=== PATIENT | female | born 1945 | race Caucasian/White ===

== ENCOUNTER 2024-07-03 19:57 | Inpatient (IN) | payer MEDICARE, MEDICAID, SELFPAY ==
--- NOTE | ~2024-07-03 | XR_ITS ---
EXAMINATION: XR CHEST CLINICAL INFORMATION: F u Multifocal pneumonia COMPARISON: July 03, 2024 TECHNIQUE: Frontal view of the chest was obtained. FINDINGS: Mild prominence of the interstitial markings. Improved aeration. No pleural effusion. No pneumothorax. Cardiac mediastinal silhouette size is normal. There is a moderate to large volume hiatal hernia overlapping the heart silhouette. Calcified plaque thoracic aorta. Multilevel thoracic spondylosis. S-shaped curvature of the thoracic spine. XR/XR chest 1V IMPRESSION: Improved aeration/decreased interstitial lung edema. Electronically signed by: Yaniv Bearden MD 07/06/2024 08:51 AM [facility]INE
--- NOTE | ~2024-07-03 | CT_ITS ---
CLINICAL HISTORY: pna, flu A+ CT chest without contrast Comparison: Chest x-ray from 07/03/2024 Findings: Multifocal airspace disease concerning for pneumonitis and/or multifocal pneumonia including ground-glass in the left upper lobe. Small-minimal pleural effusions. No pneumothorax. Mild cardiomegaly with multichamber enlargement of the heart. Small mediastinal lymph nodes are nonspecific and may be reactive. Secretions noted in the trachea. Vascular calcifications include imaged aorta and its branches and coronary arteries. [id number] hiatal hernia with mild rotation of the imaged stomach in this noncontrast study. Multiple cystic lesions of the liver not characterize without intravenous contrast. Differential considerations include cysts and hemangiomas. Liver metastasis is not excluded. Imaged cystic lesion of the right kidney measures 6 cm is partially imaged in the [id number]. Degenerative changes include imaged shoulders and imaged spine. IMPRESSION: 1. Multifocal airspace disease concerning for multifocal pneumonia. Recommend attention on follow-up to ensure resolution. 2. [id number] hiatal hernia. 3. Nonspecific cystic lesions of the imaged liver. Please consider nonemergent dedicated liver imaging for additional characterization. This document has been electronically signed by: Kemal Trejo MD on 07/04/2024 02:54:59
--- NOTE | ~2024-07-03 | XR_ITS ---
CLINICAL HISTORY: SOB 1 view chest x-ray Comparison: None Findings: Interstitial prominence and patchy opacities in both lungs. Heart size is normal. No acute fracture. IMPRESSION: Interstitial prominence and patchy opacities in both lungs which could represent pulmonary vascular congestion or atypical/viral pneumonia. This document has been electronically signed by: Saad Murphy MD on 07/03/2024 21:38:03
[2024-07-03 19:58] VITALS: BP 118/61; PULSE 69; RESP 28; TEMP 37; O2SAT 72; BMI 28.1
--- NOTE | 2024-07-03 19:59 | ED.SOB ---
HPI - SOB/Dyspnea General Chief Complaint: Dyspnea Stated Complaint: SOB Time Seen by Provider: 07/03/24 20:03 Source: patient and family Mode of arrival: ambulatory Limitations: no limitations History of Present Illness ED Provider: Dr. Tegan Tovar HPI Narrative: Patient comes to the emergency room complaining to 4-5 days of difficulty breathing, cough, wheezing. To patient's knowledge, she has no history of asthma or emphysema. 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 Patient's family at bedside, patient had a low-grade fever couple of days ago. They noted the patient had difficulty breathing. Someone in the family has history of asthma and gave her a nebulization treatment to help the patient breathe. Then, they decided to check her O2 monitor at home and they noted that the patient's oxygen saturation was in the 70s, they brought the patient to emergency room. To patient's knowledge, she does not have any sick contacts. When patient arrived to triage, it was noted that patient's oxygen saturation was 72% on room air with good waveform. Related Data Allergies Allergy/AdvReac Type Severity Reaction Status Date / Time No Known Allergies Allergy Verified 07/03/24 20:00 Review of Systems Review of Systems: Constitutional : No Weight loss, complaining of low-grade Fever, No Chills, No Night Sweats, No Fatigue, No Malaise ENT/Mouth : No Hearing loss, No Ear Pain, No Nasal Congestion, No Sinus Pain, No Hoarseness, No sore throat, No Rhinorrhea, No Swallowing Difficulty Eyes: No Eye Pain, No Swelling, No Redness, No Foreign Body, No Discharge, No Vision Changes Cardiovascular : No Chest Pain, No SOB, No Dyspnea on Exertion, No Orthopnea, No Edema, No Palpitations Respiratory : Complaining of mild cough, new onset wheezing, shortness of breath for 4 days Gastrointestinal : No Nausea, No Vomiting, No Diarrhea, No Constipation, No abdominal Pain, No Hematochezia, No Melena Genitourinary : no irregular bleeding, No Dysuria, No Urinary Frequency, No Hematuria, No Urinary Incontinence, No Urgency, No Flank Pain, No Urinary Flow Changes, No Hesitancy Musculoskeletal : No joint pain, No Myalgias, No Joint Swelling Skin : No Skin Lesions, No rash Neuro : No Weakness, No Numbness, No Paresthesias, No Loss of Consciousness, No Dizziness, No Headache Psych : No Anxiety/Panic, No Depression, No SI/HI/AH/VH, No Social Issues, Heme/Lymph: No Bruising, No Bleeding,No Lymphadenopathy Endocrine : No Polyuria, No Polydipsia, No Temperature Intolerance [facility] Past Medical History Medical History Hypertension Social History Social History Smoked in Last 30 Days: No Use of substances other than those prescribed or required for medical reasons: No Advance Directives: Yes Advance Directives on File: Yes Advance Directives Date on File: 04/23/24 Physical Exam Vital Signs: Vital Signs: Last Vital Signs Temp 98.6 F 07/03/24 19:58 Pulse 64 07/03/24 20:36 Resp 22 H 07/03/24 20:36 BP 118/61 07/03/24 19:58 Pulse Ox 72 L 07/03/24 19:58 O2 Del Method Room Air 07/03/24 19:58 BMI result Body Mass Index 28.1 Const: Other: Appearance: Alert. Oriented X3. Looks uncomfortable Eyes: Pupils equal, round and reactive to light. ENT: Pharynx normal. Neck: Normal inspection. Neck supple. No lymph nodes noted. No crepitus CVS: Normal heart rate and rhythm. Pulses normal. Normal S1 and S2 Respiratory: Patient's oxygen saturation 95% on 5 L. Previously 72% on room air. Patient wheezing bilaterally Abdomen: Soft and nontender. No rigidity. No distention. Skin: Skin warm and clammy. Normal skin color. Normal skin turgor. Extremities: No lower extremity edema. No Lacerations. No Rash Neuro: Oriented X 3. No motor deficit. No sensory deficit. Moving all extremities. No slurred speech. CN 2 through 12 grossly intact Psych: calm, cooperative, normal affect Course Course Course Narrative: This is an RME: Additional HPI, ROS, PE not included below will be deferred to primary provider. RME assessment and note performed by: Krissy Herron PA-C This is a 79-year-old female, with a history of hypertension, circulation problems arthritis, who presents emergency department with complaints of shortness for breath, cough, fevers and wheezing since . Patient with an oxygen saturation 71% on room air. Plan: Labs, chest x-ray, EKG, ED bronch protocol, blood cultures, VBG, patient immediately brought back to the emergency department. She was placed on 6 L nasal cannula, oxygen saturation 96% Medications Administered Discontinued Medications Generic Name Dose Route Start Last Admin Trade Name Cristine PRN Reason Stop Dose Admin Albuterol Sulfate 2.5 mg/ 0 mg 07/03/24 20:30 07/03/24 20:38 Albuterol/Ipratropium 3 ml INHALE 07/03/24 20:31 5 dose ONCE ONE Administration Magnesium Sulfate 2 gm in 50 mls @ 25 mls/hr 07/03/24 20:28 07/03/24 20:52 Magnesium Sulfate/H2o IV 07/03/24 22:27 25 mls/hr ONCE ONE Administration Methylprednisolone Sodium Succinate 125 mg 07/03/24 20:28 07/03/24 20:52 Methylprednisolone Sod Succ 125 Mg/2 Ml Vial IVPUSH 07/03/24 20:29 125 mg ONCE ONE Administration Medical Decision Making Medical Decision Making [facility] Narrative: Patient of EKG: Sinus rhythm, first-degree AV block, right bundle-branch block, heart rate 64, QTC 468 My interpretation of labs: Patient's white blood cell count 4.1, lymphocytes 44.2 likely viral illness, it does not show any significant acute abnormality. Lactic 1.0, patient's magnesium is 3.2, patient was given magnesium on arrival for shortness of breath/wheezing. BNP slightly bumped at 252 Chest x-ray shows patchy opacities in both lungs, congestion versus viral pneumonia. Neurology positive for influenza A Patient does need oxygen. Patient needs admission. I discussed the patient with Dr. Jerome, patient being admitted Differential Diagnosis Differential Diagnoses: The differential diagnosis associated with the presentation includes (Influenza, COVID, pneumonia) Admission/Observation Consideration of admission/observation: Escalation of care including admission/observation considered Consult Healthcare Provider Management of the patient was discussed with: Hospitalist Lab Data [facility] Lab Attestation statement: I reviewed the patient's lab results. 07/03/24 20:07/03/24 21:24 Labs: Lab Results 07/03/24 07/03/24 07/03/24 Range/Units 20:25 20:33 21:24 WBC 4.1 L (4.8-10.8) X10*3/uL RBC 4.27 (4.20-5.50) X10*6/uL Hgb 13.0 (12.0-16.0) g/dl Hct 39.5 (37.0-47.0) % MCV 92.5 (80.0-98.0) fL MCH 30.4 (27.0-33.0) pg MCHC 32.9 (31.0-35.0) g/dl RDW 14.1 (11.0-16.0) % Plt Count 191 (160-400) X10*3/uL MPV 9.3 L (9.4-12.3) fL Immature Gran % (Auto) 0.7 H (0.0-0.4) % Neut % (Auto) 45.2 (45-73) % Lymph % (Auto) 44.2 H (20-40) % [place] % (Auto) 9.5 (2-11) % Eos % (Auto) 0.2 (0-4) % Baso % (Auto) 0.2 (0-2) % Lymph # (Auto) 1.8 (1.2-4.9) X10*3/uL [place] # (Auto) 0.4 (0.1-1.2) X10*3/uL Eos # (Auto) 0.0 (0.0-0.4) X10*3/uL Baso # (Auto) 0.0 (0.0-0.2) X10*3/uL Abs Immat Gran (auto) 0.03 (0.00-0.03) X10*3/uL Absolute Neuts (auto) 1.9 L (2.0-8.3) x10*3/uL Absolute Nucleated RBC 0.000 (0.0-0.012) X10*3/uL Nucleated RBC % (auto) 0.0 (0.0-0.2) /100WBC Hold Purple Top SEE NOTE Hold Blue Top SEE NOTE VBG pH 7.34 (7.32-7.43) VBG pCO2 54 mmHg VBG pO2 50 mmHg VBG HCO3 30 H (22-26) mmol/L VBG O2 Saturation 79.0 % VBG Base Excess 3.2 mmol/L Sodium 134 L (135-145) mmol/L Potassium 4.1 (3.3-5.1) mmol/L Chloride 100 (96-108) mmol/L Carbon Dioxide 24 (22-29) mmol/L Anion Gap 14 (12-20) BUN 21 H (9-16) mg/dL Creatinine 0.81 (0.5-1.4) mg/dL Estim Creat Clear Calc 53.8 Estimated GFR > 60 Random Glucose 136 H (60-115) mg/dL Lactic Acid 1.0 (0.5-2.0) mmol/L Calcium 8.3 L (8.4-10.2) mg/dL Magnesium 3.2 H (1.6-2.6) mg/dL Total Bilirubin 0.2 (0.0-1.0) mg/dL Direct Bilirubin < 0.2 (0.0-0.5) mg/dL AST 90 H (5-31) U/L ALT 54 H (0-31) U/L Alkaline Phosphatase 116 (39-117) U/L Troponin I High Sens 8.4 (<3.5-17.0) ng/L B-Natriuretic Peptide 252 H (<100) pg/mL Total Protein 7.4 (6.5-8.0) g/dL Albumin 3.3 L (3.5-5.0) g/dL Influenza Type A (PCR) POSITIVE A (Negative) Influenza Type B (PCR) NEGATIVE (Negative) RSV RNA Qual (PCR) NEGATIVE (Negative) SARS-CoV-2 RNA (RT-PCR) NEGATIVE (Negative) Independent Interpretation I performed an independent interpretation of an: Plain X-Ray Radiology Impression Discussion of test interpretation with radiology: I have reviewed the radiologist's reading. Radiologist Impression: Interstitial prominence and patchy opacities in both lungs. Heart size is normal. No acute fracture. IMPRESSION: Interstitial prominence and patchy opacities in both lungs which could represent pulmonary vascular congestion or atypical/viral pneumonia. Independent Historian Clinical information obtained from an independent historian. History obtained from or confirmed by: Other Critical Care Time Critical Care Time Critical Care Time: Yes Total Critical Care Time: 60 Attestation: I have personally provided critical care time. Time includes review of lab data, radiology results, discussion with consultants, and monitoring for potential decompensation. Intervention performed as documented. Discharge Plan Discharge Clinical Impression: Influenza A, Hypoxia Patient Disposition: Admitted As Inpatient Print Language: Kazakh
--- NOTE | 2024-07-03 20:01 | ECG_ITS ---
Test Reason : SOB Blood Pressure : */* mmHG Vent. Rate : 64 BPM Atrial Rate : 64 BPM P-R Int : 210 ms QRS Dur : 158 ms QT Int : 454 ms P-R-T Axes : 30 -60 -5 degrees QTcB Int : 468 ms Sinus rhythm with 1st degree A-V block Right bundle branch block Left anterior fascicular block Bifascicular block Abnormal ECG No previous ECGs available Referred By: Krissy Herron Electronically Signed By: CEDRICK VAUGHN
--- NOTE | 2024-07-03 20:08 | PC.NURSE ---
respiratory at the bedside for assessment.
[2024-07-03 20:32] LABS: MANUAL DIFF FLAG NO
[2024-07-03 20:33] LABS: Basophils Percent Auto 0.2 % (0-2); Eosinophils Percent Auto 0.2 % (0-4); Hematocrit 39.5 % (37.0-47.0); Imm Gran Abs Auto 0.03 X10*3/uL (0.00-0.03); Imm Gran Pct Auto 0.7 % (0.0-0.4); Lymphocytes Absolute Auto 1.8 X10*3/uL (1.2-4.9); Lymphocytes Percent Auto 44.2 % (20-40); Mean Corpuscular HGB Conc 32.9 g/dl (31.0-35.0); Mean Corpuscular Hemoglobin 30.4 pg (27.0-33.0); Mean Corpuscular Volume 92.5 fL (80.0-98.0); Mean Platelet Volume 9.3 fL (9.4-12.3); Monocytes Absolute Auto 0.4 X10*3/uL (0.1-1.2); Monocytes Percent Auto 9.5 % (2-11); Neutrophils Absolute Auto 1.9 x10*3/uL (2.0-8.3); Neutrophils Percent Auto 45.2 % (45-73); Platelet Count 191 X10*3/uL (160-400); Red Blood Count 4.27 X10*6/uL (4.20-5.50); Red Cell Distribution Width 14.1 % (11.0-16.0); White Blood Count 4.1 X10*3/uL (4.8-10.8)
[2024-07-03 20:36] VITALS: PULSE 64; RESP 22; O2SAT 94
[2024-07-03] MEDS: Albuterol Sulfate 2.5 MG, Albuterol/Iprat 2.5/0.5MG 3 ML 3 ML INHALE (20:38)
[2024-07-03 20:46] LABS: VBG Base Excess 3.2 mmol/L; VBG HCO3 30 mmol/L (22-26); VBG pCO2 54 mmHg; VBG pH 7.34 (7.32-7.43); VBG pO2 50 mmHg
[2024-07-03] MEDS: Magnesium Sulfate/H2O 2 GM/50 ML PIGGYBACK IV (20:52)
[2024-07-03] MEDS: methylPREDNISolone Sod Succ 125 MG/2 ML VIAL IVPUSH (20:52)
[2024-07-03 20:57] LABS: Venous Blood Gas Refer to POC result
[2024-07-03 21:03] LABS: Troponin-I High Sensitivity 8.4 ng/L (<3.5-17.0)
[2024-07-03 21:57] LABS: Alanine Aminotransferase 54 U/L (0-31); Albumin Level 3.3 g/dL (3.5-5.0); Alkaline Phosphatase 116 U/L (39-117); Anion Gap 14 (12-20); Aspartate Amino Transferase 90 U/L (5-31); Bilirubin Direct < 0.2 mg/dL (0.0-0.5); Bilirubin Total 0.2 mg/dL (0.0-1.0); Blood Urea Nitrogen 21 mg/dL (9-16); Calcium 8.3 mg/dL (8.4-10.2); Carbon Dioxide 24 mmol/L (22-29); Chloride 100 mmol/L (96-108); Creatinine Clr Calc Pharmacy 53.8; Estimated Glomerular Filt Rate > 60; Glucose Random 136 mg/dL (60-115); Magnesium 3.2 mg/dL (1.6-2.6); Potassium 4.1 mmol/L (3.3-5.1); Sodium 134 mmol/L (135-145); Total Protein 7.4 g/dL (6.5-8.0)
[2024-07-03 22:19] LABS: Influenza A PCR POSITIVE (Negative); Influenza B PCR NEGATIVE (Negative); Resp Syncy Virus RNA Qual PCR NEGATIVE (Negative); SARS COV2 PCR INHOUSE NEGATIVE (Negative)
[2024-07-03 22:28] LABS: B Type Natriuretic Peptide 252 pg/mL (<100)
--- NOTE | 2024-07-03 22:52 | P.HPHOSP_ITS ---
History of Present Illness Date of Service: 07/03/24 Chief Complaint: Dyspnea This is a 79-year-old female with pertinent history of hypertension who presents to the emergency department for evaluation of dyspnea. Patient states her symptoms began 4-5 days prior to presentation. Initially she was febrile and subsequently developed cough with intermittent sputum production. Also has been having malaise with easy fatigability and poor p.o. intake. Patient's daughter took patient's oxygen saturation which was found to be low on the day of presentation. She was satting in the 70s. Does endorse dyspnea which is worse with exertion. No orthopnea or PND. No leg edema. Also has been having wheezing but no history of asthma or COPD. 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 No chest pain, palpitations, abdominal pain, changes in urinary or bowel habits. History obtained with the help of utilities operator. In the emergency department, patient was found to be satting 72% on room air and placed on supplemental oxygen. She tested positive for influenza. Imaging with multifocal pneumonia Review of Systems 2 Constitutional: Constitutional: Reports fatigue, Reports lethargy, Reports malaise, Reports poor appetite and Reports weakness Cardiovascular: Cardiovascular: Reports dyspnea on exertion Respiratory: Respiratory: Reports cough, Reports dyspnea on exertion and Reports wheezing Gastrointestinal: Gastrointestinal: Reports no additional gastrointestinal complaints Genitourinary: Genitourinary: Reports no additional female genitourinary complaints Neurologic: Reports weakness Endocrine: Endocrine: Reports fatigue Allergic/Immunologic: Allergic/Immunologic: Reports wheezing [facility] Medical History Hypertension Pertinent family history: No family history of early CAD Social History Smoked in Last 30 Days: No Use of substances other than those prescribed or required for medical reasons: No Advance Directives: Yes Advance Directives on File: Yes Advance Directives Date on File: 04/23/24 Meds Allergies Allergy/AdvReac Type Severity Reaction Status Date / Time No Known Allergies Allergy Verified 07/03/24 20:00 Active Medications: Current Medications Acetaminophen (Acetaminophen 325 Mg Tablet) 650 mg PO Q6H PRN PRN Reason: Pain, Mild 1-3,fever,headache Calcium Carbonate (Calcium Carbonate 750 Mg Tab.Chew) 750 mg PO Q4H PRN PRN Reason: Heartburn Enoxaparin Sodium (Enoxaparin Sodium 40 Mg/0.4 Ml Syringe) 40 mg SUBCUT Q24H CHANDRAKANT Magnesium Hydroxide (Milk Of Magnesia 30 Ml Oral.Susp) 30 ml PO DAILY PRN PRN Reason: Constipation Melatonin (Melatonin 3 Mg Tablet) 6 mg PO BEDTIME PRN PRN Reason: Insomnia Sodium Chloride (0.9 % Sodium Chloride Flush 3 Ml Syringe) 3 ml IVFLUSH QSHIFT CHANDRAKANT Physical Exam 2 Vital Signs and Narrative: Vital Signs: Last Vital Signs Temp 98.6 F 07/03/24 19:58 Pulse 64 07/03/24 20:36 Resp 22 H 07/03/24 20:36 BP 118/61 07/03/24 19:58 Pulse Ox 72 L 07/03/24 19:58 O2 Del Method Room Air 07/03/24 19:58 BMI result Body Mass Index 28.1 Elderly female lying in bed in mild distress on supplemental oxygen Neck supple, no JVD Regular rate and rhythm, S1-S2 heard Bilateral wheezing present with crackles Abdomen soft nontender, no guarding, no rigidity Patient is awake, alert and oriented to self, place, time and person ; no focal motor deficit Psych: Normal mood No pedal edema Results Labs 07/04/24 04:55 07/04/24 04:55 Labs: Laboratory Results - last 24 hr 07/03/24 07/03/24 07/03/24 20:25 20:33 21:24 MCV 92.5 MCH 30.4 MCHC 32.9 RDW 14.1 Plt Count 191 MPV 9.3 L Immature Gran % (Auto) 0.7 H Neut % (Auto) 45.2 Lymph % (Auto) 44.2 H [place] % (Auto) 9.5 Eos % (Auto) 0.2 Baso % (Auto) 0.2 Lymph # (Auto) 1.8 [place] # (Auto) 0.4 Eos # (Auto) 0.0 Baso # (Auto) 0.0 Abs Immat Gran (auto) 0.03 Absolute Neuts (auto) 1.9 L Absolute Nucleated RBC 0.000 Nucleated RBC % (auto) 0.0 Hold Purple Top SEE NOTE Hold Blue Top SEE NOTE VBG pH 7.34 VBG pCO2 54 VBG pO2 50 VBG HCO3 30 H VBG O2 Saturation 79.0 VBG Base Excess 3.2 Anion Gap 14 Estim Creat Clear Calc 53.8 Estimated GFR > 60 Random Glucose 136 H Lactic Acid 1.0 Calcium 8.3 L Magnesium 3.2 H Total Bilirubin 0.2 Direct Bilirubin < 0.2 AST 90 H ALT 54 H Alkaline Phosphatase 116 B-Natriuretic Peptide 252 H Total Protein 7.4 Albumin 3.3 L Influenza Type A (PCR) POSITIVE A Influenza Type B (PCR) NEGATIVE RSV RNA Qual (PCR) NEGATIVE SARS-CoV-2 RNA (RT-PCR) NEGATIVE Assessment and Plan (1) Acute hypoxemic respiratory failure: Status: Acute (2) Influenza A: Status: Acute Plan This is a 79-year-old female with pertinent history of hypertension who presents to the emergency department for evaluation of dyspnea. #. Acute hypoxemic respiratory failure due to influenza A bronchitis with concern for superimposed bacterial infection: Will admit patient with supplemental oxygen. Initiating Tamiflu and systemic steroids. Scheduled and p.r.n. DuoNebs. Initiating IV ceftriaxone and azithromycin #. Hypertension: Continue home antihypertensives Med rec pending DVT prophylaxis: Lovenox Full code. Discussed with patient and daughter at bedside Admit as inpatient and will require two night minimum hospital stay for supplemental oxygen, IV antibiotics (as above), which is not possible in a lesser acute setting. Quality Stroke Does the patient have a stroke diagnosis?: No VTE Prior VTE?: No VTE Risk Level:: Medical - moderate - high VTE Device Contraindication: Treatment Not Indicated VTE Drug Contraindication: N/A - Med Ordered
[2024-07-03 23:32] VITALS: BP 123/69; PULSE 60; RESP 22; TEMP 36.9; O2SAT 92
[2024-07-03] MEDS: Oseltamivir Phosphate 75 MG CAPSULE PO (23:43)
[2024-07-03] MEDS: Enoxaparin Sodium 40 MG/0.4 ML SYRINGE SUBCUT (23:44)
--- NOTE | 2024-07-03 23:48 | PC.NURSE ---
pt reposition for comfort, medicated per mar.
[2024-07-04] VITALS (8 sets, daily range): BP systolic 123–139; BP diastolic 61–70; PULSE 60–68; RESP 15–21; TEMP 36–36.8; O2SAT 90–98; BMI 28.2
[2024-07-04 04:59] LABS: Basophils Percent Auto 0.3 % (0-2); Hematocrit 43.5 % (37.0-47.0); Hemoglobin 14.2 g/dl (12.0-16.0); Imm Gran Abs Auto 0.02 X10*3/uL (0.00-0.03); Imm Gran Pct Auto 0.6 % (0.0-0.4); Lymphocytes Absolute Auto 1.2 X10*3/uL (1.2-4.9); MANUAL DIFF FLAG SCAN; Mean Corpuscular HGB Conc 32.6 g/dl (31.0-35.0); Mean Corpuscular Hemoglobin 30.4 pg (27.0-33.0); Mean Corpuscular Volume 93.1 fL (80.0-98.0); Mean Platelet Volume 9.4 fL (9.4-12.3); Monocytes Absolute Auto 0.1 X10*3/uL (0.1-1.2); Monocytes Percent Auto 2.5 % (2-11); NRBC Pct Auto 0.6 /100WBC (0.0-0.2); Neutrophils Absolute Auto 1.9 x10*3/uL (2.0-8.3); Neutrophils Percent Auto 58.6 % (45-73); Platelet Count 165 X10*3/uL (160-400); Red Blood Count 4.67 X10*6/uL (4.20-5.50); Red Cell Distribution Width 13.9 % (11.0-16.0); SCAN SMEAR FLAG 1; White Blood Count 3.2 X10*3/uL (4.8-10.8)
[2024-07-04] MEDS: Acetaminophen 325 MG TABLET 650 MG PO (05:05)
--- NOTE | 2024-07-04 05:10 | PC.NURSE ---
medicated per mar, pt reposition for comfort.
[2024-07-04 05:13] LABS: Anion Gap 15 (12-20); Blood Urea Nitrogen 18 mg/dL (9-16); Calcium 8.7 mg/dL (8.4-10.2); Carbon Dioxide 23 mmol/L (22-29); Chloride 101 mmol/L (96-108); Creatinine Clr Calc Pharmacy 49.5; Estimated Glomerular Filt Rate > 60; Glucose Random 147 mg/dL (60-115); Potassium 4.9 mmol/L (3.3-5.1); Sodium 134 mmol/L (135-145)
[2024-07-04 05:21] LABS: SLIDE REVIEW VERIFIED
[2024-07-04] MEDS: 0.9 % Sodium Chloride Flush 3 ML SYRINGE IVFLUSH ×3 (05:34→20:42)
[2024-07-04] MEDS: cefTRIAXone sodium 1 GM VIAL IVPUSH (08:02)
[2024-07-04] MEDS: Albuterol/Iprat 2.5/0.5MG 3 ML AMPUL.NEB INHALE ×4 (08:04→20:48)
[2024-07-04] MEDS: predniSONE 20 MG TABLET 40 MG PO (08:46)
[2024-07-04] MEDS: Azithromycin 500 MG in 0.9 % Sodium Chloride 250 ML 125 MG IV (08:46)
--- NOTE | 2024-07-04 10:55 | P.PNIM_ITS ---
Subjective Subjective Date of Service: 07/04/24 Interval History: seen and evaluated this morning feels little better denies fever but has chills and SOB no other events Review of Systems Review of Systems: Yes all other systems are reviewed and are negative Physical Exam 2 Vital Signs: Vital Signs: Last Vital Signs Temp 98.2 F 07/04/24 04:42 Pulse 65 07/04/24 08:05 Resp 21 H 07/04/24 08:05 BP 123/69 07/03/24 23:32 Pulse Ox 95 07/04/24 04:42 O2 Del Method Nasal Cannula 07/04/24 04:42 O2 Flow Rate 5 07/04/24 04:42 BMI result Body Mass Index 28.1 Const: Other: Constitutional : Awake, interactive, in moderate respiratory distress Neck : Normal inspection, Supple Cardiovascular : RRR, no JVP, no lower extremity edema Respiratory : decreased bilateral air entry, fine basal crackles, expiratory wheezes , tachypnea Gastrointestinal: soft, lax, Normal bowel sounds, Non tender Skin : Warm, Dry Neurological : Alert & oriented x3, No focal deficit Objective Data Active Medications Acetaminophen (Acetaminophen 325 Mg Tablet) 650 mg PO Q6H PRN PRN Reason: Pain, Mild 1-3,fever,headache Last Admin: 07/04/24 05:05 Dose: 650 mg Documented By: DARLENE Albuterol/Ipratropium (Albuterol/Iprat 2.5/0.5mg 3 Ml Ampul.Neb) 3 ml INHALE RQ4H WHILE AWAKE [facility] Last Admin: 07/04/24 08:04 Dose: 3 ml Documented By: ARELI Albuterol/Ipratropium (Albuterol/Iprat 2.5/0.5mg 3 Ml Ampul.Neb) 3 ml INHALE Q4H PRN PRN Reason: Wheezing Calcium Carbonate (Calcium Carbonate 750 Mg Tab.Chew) 750 mg PO Q4H PRN PRN Reason: Heartburn Carvedilol (Carvedilol 6.25 Mg Tablet) 6.25 mg PO BID [facility]; Protocol Ceftriaxone Sodium (Ceftriaxone Sodium 1 Gm Vial) 1 gm IVPUSH Q24H [facility] Last Admin: 07/04/24 08:02 Dose: 1 gm Documented By: FAWAD Enoxaparin Sodium (Enoxaparin Sodium 40 Mg/0.4 Ml Syringe) 40 mg SUBCUT Q24H [facility] Last Admin: 07/03/24 23:44 Dose: 40 mg Documented By: DARLENE Azithromycin 500 mg/ Sodium (Chloride) 250 mls @ 125 mls/hr IV Q24H [facility] Last Admin: 07/04/24 08:46 Dose: 125 mls/hr Documented By: FAWAD Magnesium Hydroxide (Milk Of Magnesia 30 Ml Oral.Susp) 30 ml PO DAILY PRN PRN Reason: Constipation Melatonin (Melatonin 3 Mg Tablet) 6 mg PO BEDTIME PRN PRN Reason: Insomnia Non-Formulary Medication (Neurontin) 600 mg PO QPM [facility] Ondansetron HCl (Ondansetron Hcl 4 Mg/2 Ml Vial) 4 mg IVPUSH Q8H PRN PRN Reason: Nausea and Vomiting Oseltamivir Phosphate (Oseltamivir Phosphate 75 Mg Capsule) 75 mg PO Q12H [facility] Stop: 07/08/24 11:01 Last Admin: 07/03/24 23:43 Dose: 75 mg Documented By: DARLENE Prednisone (Prednisone 20 Mg Tablet) 40 mg PO DAILY [facility] Last Admin: 07/04/24 08:46 Dose: 40 mg Documented By: FAWAD Sodium Chloride (0.9 % Sodium Chloride Flush 3 Ml Syringe) 3 ml IVFLUSH QSHIFT [facility] Last Admin: 07/04/24 08:03 Dose: Not Given Documented By: FAWAD Non-Admin Reason: IV Running Labs 07/04/24 04:55 07/04/24 04:55 Labs: Laboratory Results - last 24 hr 07/03/24 07/03/24 07/03/24 20:25 20:33 21:24 MCV 92.5 MCH 30.4 MCHC 32.9 RDW 14.1 Plt Count 191 MPV 9.3 L Immature Gran % (Auto) 0.7 H Neut % (Auto) 45.2 Lymph % (Auto) 44.2 H Mcdonough % (Auto) 9.5 Eos % (Auto) 0.2 Baso % (Auto) 0.2 Lymph # (Auto) 1.8 Mcdonough # (Auto) 0.4 Eos # (Auto) 0.0 Baso # (Auto) 0.0 Abs Immat Gran (auto) 0.03 Absolute Neuts (auto) 1.9 L Absolute Nucleated RBC 0.000 Nucleated RBC % (auto) 0.0 Smear Tech's Comments Hold Purple Top SEE NOTE Hold Blue Top SEE NOTE VBG pH 7.34 VBG pCO2 54 VBG pO2 50 VBG HCO3 30 H VBG O2 Saturation 79.0 VBG Base Excess 3.2 Anion Gap 14 Estim Creat Clear Calc 53.8 Estimated GFR > 60 Random Glucose 136 H Lactic Acid 1.0 Calcium 8.3 L Magnesium 3.2 H Total Bilirubin 0.2 Direct Bilirubin < 0.2 AST 90 H ALT 54 H Alkaline Phosphatase 116 B-Natriuretic Peptide 252 H Total Protein 7.4 Albumin 3.3 L Influenza Type A (PCR) POSITIVE A Influenza Type B (PCR) NEGATIVE RSV RNA Qual (PCR) NEGATIVE SARS-CoV-2 RNA (RT-PCR) NEGATIVE 07/04/24 04:55 MCV 93.1 MCH 30.4 MCHC 32.6 RDW 13.9 Plt Count 165 MPV 9.4 Immature Gran % (Auto) 0.6 H Neut % (Auto) 58.6 Lymph % (Auto) 38.0 Mcdonough % (Auto) 2.5 Eos % (Auto) 0.0 Baso % (Auto) 0.3 Lymph # (Auto) 1.2 Mcdonough # (Auto) 0.1 Eos # (Auto) 0.0 Baso # (Auto) 0.0 Abs Immat Gran (auto) 0.02 Absolute Neuts (auto) 1.9 L Absolute Nucleated RBC 0.020 H Nucleated RBC % (auto) 0.6 H Smear Tech's Comments VERIFIED Hold Purple Top Hold Blue Top VBG pH VBG pCO2 VBG pO2 VBG HCO3 VBG O2 Saturation VBG Base Excess Anion Gap 15 Estim Creat Clear Calc 49.5 Estimated GFR > 60 Random Glucose 147 H Lactic Acid Calcium 8.7 Magnesium Total Bilirubin Direct Bilirubin AST ALT Alkaline Phosphatase B-Natriuretic Peptide Total Protein Albumin Influenza Type A (PCR) Influenza Type B (PCR) RSV RNA Qual (PCR) SARS-CoV-2 RNA (RT-PCR) Assessment and Plan (1) Hypoxia: Status: Acute (2) Influenza A: Status: Acute (3) Multifocal pneumonia: Status: Acute Plan This is a 79-year-old female with pertinent history of hypertension who presents to the emergency department for evaluation of dyspnea. # Acute hypoxemic respiratory failure due to influenza A bronchitis with concern for superimposed bacterial infection wean down supplemental oxygen. continue Tamiflu and systemic steroids. Scheduled and p.r.n. DuoNebs. IV ceftriaxone and azithromycin # Hypertension Hold Amlodipine and Atenolol , restart as tolerated Continue Carvedilol DVT prophylaxis: Lovenox Full code. Discussed with patient and daughter at bedside Needs inpatient hospital stay overnight for supplemental oxygen, IV antibiotics, which is not possible in a lesser acute setting. Quality Stroke Does the patient have a stroke diagnosis?: No VTE Prior VTE?: No VTE Risk Level:: Medical - moderate - high VTE Device Contraindication: Treatment Not Indicated VTE Drug Contraindication: N/A - Med Ordered
--- NOTE | 2024-07-04 11:52 | PHA.MEDREC ---
Addendum entered by Sundeep Tate [facility] 07/04/24 12:59: MED REC CHECKED BY [facility] Original Note: Pharmacy Consult ? Medication Reconciliation Pharmacy has completed the medication reconciliation. Spoke with patients daughter through an medical psychotherapist. She had a list from home. Daughter says all of her meds are from [place]. amlodipine, carvedilol, and atenolol have claims from here. Vasoflex? 60 mg is on the list, it is not available in the [place]. It is either vasoflex or vasofix, both are for hypertension but unable to confirm actual indication. Will let provider know. Patient also has Liquifilm 0.1% eye drops, daughter says patient does not use them everyday, patient says it is for glaucoma. Leaving off of med list for now.
[2024-07-04] MEDS: Oseltamivir Phosphate 75 MG CAPSULE PO ×2 (12:08→22:40)
--- NOTE | 2024-07-04 13:19 | MHC.CM.PN ---
PT LIVES WITH DGTER HAD NO PREVIOUS SERVIES AND HAS OWN [facility] HOME DC PLAN HOME NO SERVICES
[2024-07-04] MEDS: carvediloL 6.25 MG TABLET PO (20:41)
[2024-07-04] MEDS: Enoxaparin Sodium 40 MG/0.4 ML SYRINGE SUBCUT (22:40)
[2024-07-05] VITALS (9 sets, daily range): BP systolic 131–147; BP diastolic 67–82; PULSE 58–71; RESP 16–20; TEMP 36.2–37; O2SAT 92–94
[2024-07-05] MEDS: cefTRIAXone sodium 1 GM VIAL IVPUSH (05:45)
[2024-07-05] MEDS: Azithromycin 500 MG in 0.9 % Sodium Chloride 250 ML 125 MG IV (06:17)
[2024-07-05 07:11] LABS: Anion Gap 12 (12-20); Blood Urea Nitrogen 16 mg/dL (9-16); Calcium 8.3 mg/dL (8.4-10.2); Carbon Dioxide 29 mmol/L (22-29); Chloride 102 mmol/L (96-108); Creatinine Clr Calc Pharmacy 71.5; Estimated Glomerular Filt Rate > 60; Glucose Random 118 mg/dL (60-115); Potassium 4.6 mmol/L (3.3-5.1); Sodium 138 mmol/L (135-145)
[2024-07-05 07:13] LABS: Basophils Percent Auto 0.2 % (0-2); Hemoglobin 13.2 g/dl (12.0-16.0); Imm Gran Abs Auto 0.12 X10*3/uL (0.00-0.03); Imm Gran Pct Auto 2.4 % (0.0-0.4); Lymphocytes Absolute Auto 1.7 X10*3/uL (1.2-4.9); MANUAL DIFF FLAG SCAN; Mean Corpuscular HGB Conc 32.2 g/dl (31.0-35.0); Mean Corpuscular Hemoglobin 29.9 pg (27.0-33.0); Mean Corpuscular Volume 92.8 fL (80.0-98.0); Mean Platelet Volume 9.7 fL (9.4-12.3); Monocytes Absolute Auto 0.6 X10*3/uL (0.1-1.2); Monocytes Percent Auto 11.8 % (2-11); Neutrophils Absolute Auto 2.6 x10*3/uL (2.0-8.3); Neutrophils Percent Auto 52.6 % (45-73); Platelet Count 193 X10*3/uL (160-400); Red Blood Count 4.42 X10*6/uL (4.20-5.50); Red Cell Distribution Width 14.1 % (11.0-16.0); SCAN SMEAR FLAG 1
[2024-07-05 07:53] LABS: SLIDE REVIEW VERIFIED
[2024-07-05] MEDS: 0.9 % Sodium Chloride Flush 3 ML SYRINGE IVFLUSH ×3 (08:23→22:43)
[2024-07-05] MEDS: predniSONE 20 MG TABLET 40 MG PO (08:23)
[2024-07-05] MEDS: Gabapentin 600 MG TABLET PO (08:24)
[2024-07-05] MEDS: carvediloL 6.25 MG TABLET PO (08:24)
[2024-07-05] MEDS: Acetaminophen 325 MG TABLET 650 MG PO (08:32)
[2024-07-05] MEDS: Albuterol/Iprat 2.5/0.5MG 3 ML AMPUL.NEB INHALE ×4 (08:37→20:45)
--- NOTE | 2024-07-05 09:54 | MHC.CM.PN ---
CM MET WITH PT/DAUGHTER AT BEDSIDE. PT DOES NOT WISH TO GO TO STR RECOMMENDED BY P.T. BUT WILL AGREE TO HOME SERVICES, FIRST CHOICE [facility]. REFERRAL SENT. CM WILL CONTINUE TO FOLLOW FOR ANY CHANGE TO [facility].
[2024-07-05] MEDS: Oseltamivir Phosphate 75 MG CAPSULE PO ×2 (11:20→22:43)
--- NOTE | 2024-07-05 11:52 | P.PNIM_ITS ---
Subjective Subjective Date of Service: 07/05/24 Interval History: seen and evaluated this morning feels little better denies fever but has chills and SOB no other events Review of Systems Review of Systems: Yes all other systems are reviewed and are negative Physical Exam 2 Vital Signs: Vital Signs: Last Vital Signs Temp 98.6 F 07/05/24 06:53 Pulse 62 07/05/24 08:38 Resp 19 07/05/24 08:38 BP 138/77 07/05/24 06:53 Pulse Ox 92 07/05/24 06:53 O2 Del Method Nasal Cannula 07/05/24 06:53 O2 Flow Rate 2 07/05/24 06:53 BMI result Body Mass Index 28.2 Const: Other: Constitutional : Awake, interactive, in moderate respiratory distress Neck : Normal inspection, Supple Cardiovascular : RRR, no JVP, no lower extremity edema Respiratory : decreased bilateral air entry, fine basal crackles, expiratory wheezes , tachypnea Gastrointestinal: soft, lax, Normal bowel sounds, Non tender Skin : Warm, Dry Neurological : Alert & oriented x3, No focal deficit Objective Data Active Medications Acetaminophen (Acetaminophen 325 Mg Tablet) 650 mg PO Q6H PRN PRN Reason: Pain, Mild 1-3,fever,headache Last Admin: 07/05/24 08:32 Dose: 650 mg Documented By: MORRIS Albuterol/Ipratropium (Albuterol/Iprat 2.5/0.5mg 3 Ml Ampul.Neb) 3 ml INHALE RQ4H WHILE AWAKE [facility] Last Admin: 07/05/24 08:37 Dose: 3 ml Documented By: MARQUIS Albuterol/Ipratropium (Albuterol/Iprat 2.5/0.5mg 3 Ml Ampul.Neb) 3 ml INHALE Q4H PRN PRN Reason: Wheezing Calcium Carbonate (Calcium Carbonate 750 Mg Tab.Chew) 750 mg PO Q4H PRN PRN Reason: Heartburn Carvedilol (Carvedilol 6.25 Mg Tablet) 6.25 mg PO BID [facility]; Protocol Last Admin: 07/05/24 08:24 Dose: 6.25 mg Documented By: MORRIS Ceftriaxone Sodium (Ceftriaxone Sodium 1 Gm Vial) 1 gm IVPUSH Q24H [facility] Last Admin: 07/05/24 05:45 Dose: 1 gm Documented By: FEROZ Enoxaparin Sodium (Enoxaparin Sodium 40 Mg/0.4 Ml Syringe) 40 mg SUBCUT Q24H [facility] Last Admin: 07/04/24 22:40 Dose: 40 mg Documented By: FEROZ Gabapentin (Gabapentin 600 Mg Tablet) 600 mg PO DAILY [facility] Last Admin: 07/05/24 08:24 Dose: 600 mg Documented By: MORRIS Azithromycin 500 mg/ Sodium (Chloride) 250 mls @ 125 mls/hr IV Q24H [facility] Last Infusion: 07/05/24 08:35 Dose: Infused Documented By: MORRIS Magnesium Hydroxide (Milk Of Magnesia 30 Ml Oral.Susp) 30 ml PO DAILY PRN PRN Reason: Constipation Melatonin (Melatonin 3 Mg Tablet) 6 mg PO BEDTIME PRN PRN Reason: Insomnia Ondansetron HCl (Ondansetron Hcl 4 Mg/2 Ml Vial) 4 mg IVPUSH Q8H PRN PRN Reason: Nausea and Vomiting Oseltamivir Phosphate (Oseltamivir Phosphate 75 Mg Capsule) 75 mg PO Q12H [facility] Stop: 07/08/24 11:01 Last Admin: 07/05/24 11:20 Dose: 75 mg Documented By: MORRIS Prednisone (Prednisone 20 Mg Tablet) 40 mg PO DAILY [facility] Last Admin: 07/05/24 08:23 Dose: 40 mg Documented By: MORRIS Sodium Chloride (0.9 % Sodium Chloride Flush 3 Ml Syringe) 3 ml IVFLUSH QSHIFT [facility] Last Admin: 07/05/24 08:23 Dose: 3 ml Documented By: MORRIS Labs 07/05/24 06:39 07/05/24 06:39 Labs: Laboratory Results - last 24 hr 07/05/24 06:39 MCV 92.8 MCH 29.9 MCHC 32.2 RDW 14.1 Plt Count 193 MPV 9.7 Immature Gran % (Auto) 2.4 H Neut % (Auto) 52.6 Lymph % (Auto) 33.0 Irion % (Auto) 11.8 H Eos % (Auto) 0.0 Baso % (Auto) 0.2 Lymph # (Auto) 1.7 [place]ion # (Auto) 0.6 Eos # (Auto) 0.0 Baso # (Auto) 0.0 Abs Immat Gran (auto) 0.12 H Absolute Neuts (auto) 2.6 Absolute Nucleated RBC 0.000 Nucleated RBC % (auto) 0.0 Smear Tech's Comments VERIFIED Anion Gap 12 Estim Creat Clear Calc 71.5 Estimated GFR > 60 Random Glucose 118 H Calcium 8.3 L Microbiology Microbiology Results: Microbiology 07/03/24 20:41 Blood Culture - Preliminary Blood - Venous No growth after 24 hours. 07/03/24 20:25 Blood Culture - Preliminary Blood - Venous No growth after 24 hours. Assessment and Plan (1) Multifocal pneumonia: Status: Acute (2) Hypoxia: Status: Acute (3) Influenza A: Status: Acute Plan This is a 79-year-old female with pertinent history of hypertension who presents to the emergency department for evaluation of dyspnea. # Acute hypoxemic respiratory failure due to influenza A bronchitis with concern for superimposed bacterial infection continue Tamiflu and systemic steroids. Scheduled and p.r.n. DuoNebs. IV ceftriaxone and azithromycin wean down supplemental oxygen. # PHysical deconditioning PT rec STR, patient prefer going home with PT # Hypertension Hold Amlodipine and Atenolol , restart as tolerated Continue Carvedilol DVT prophylaxis: Lovenox Full code. Discussed with patient and daughter at bedside Needs inpatient hospital stay overnight for supplemental oxygen, IV antibiotics, which is not possible in a lesser acute setting. Quality Stroke Does the patient have a stroke diagnosis?: No VTE Prior VTE?: No VTE Risk Level:: Medical - moderate - high VTE Device Contraindication: Treatment Not Indicated VTE Drug Contraindication: N/A - Med Ordered
[2024-07-05] MEDS: Enoxaparin Sodium 40 MG/0.4 ML SYRINGE SUBCUT (22:43)
[2024-07-06] MEDS: cefTRIAXone sodium 1 GM VIAL IVPUSH (05:57)
[2024-07-06] MEDS: Azithromycin 500 MG in 0.9 % Sodium Chloride 250 ML 125 MG IV (05:57)
[2024-07-06 06:21] LABS: Basophils Percent Auto 0.2 % (0-2); Hematocrit 42.9 % (37.0-47.0); Imm Gran Abs Auto 0.03 X10*3/uL (0.00-0.03); Imm Gran Pct Auto 0.5 % (0.0-0.4); Lymphocytes Absolute Auto 2.6 X10*3/uL (1.2-4.9); Lymphocytes Percent Auto 41.3 % (20-40); MANUAL DIFF FLAG SCAN; Mean Corpuscular HGB Conc 32.6 g/dl (31.0-35.0); Mean Corpuscular Hemoglobin 29.9 pg (27.0-33.0); Mean Corpuscular Volume 91.7 fL (80.0-98.0); Mean Platelet Volume 9.2 fL (9.4-12.3); Monocytes Absolute Auto 0.9 X10*3/uL (0.1-1.2); Monocytes Percent Auto 14.9 % (2-11); Neutrophils Absolute Auto 2.7 x10*3/uL (2.0-8.3); Neutrophils Percent Auto 43.1 % (45-73); Platelet Count 206 X10*3/uL (160-400); Red Blood Count 4.68 X10*6/uL (4.20-5.50); Red Cell Distribution Width 14.3 % (11.0-16.0); SCAN SMEAR FLAG 1; White Blood Count 6.2 X10*3/uL (4.8-10.8)
[2024-07-06 06:37] LABS: Anion Gap 12 (12-20); Blood Urea Nitrogen 13 mg/dL (9-16); Calcium 8.8 mg/dL (8.4-10.2); Carbon Dioxide 30 mmol/L (22-29); Chloride 99 mmol/L (96-108); Creatinine Clr Calc Pharmacy 71.5; Estimated Glomerular Filt Rate > 60; Glucose Random 95 mg/dL (60-115); Potassium 4.4 mmol/L (3.3-5.1); Sodium 137 mmol/L (135-145)
[2024-07-06 06:56] VITALS: BP 152/90; PULSE 84; RESP 16; TEMP 36.6; O2SAT 92
[2024-07-06 07:01] LABS: SLIDE REVIEW VERIFIED
[2024-07-06] MEDS: 0.9 % Sodium Chloride Flush 3 ML SYRINGE IVFLUSH (08:02)
[2024-07-06] MEDS: Gabapentin 600 MG TABLET PO (08:03)
[2024-07-06] MEDS: carvediloL 6.25 MG TABLET PO (08:03)
[2024-07-06] MEDS: predniSONE 20 MG TABLET 40 MG PO (08:03)
[2024-07-06] MEDS: Acetaminophen 325 MG TABLET 650 MG PO (08:13)
[2024-07-06 08:31] VITALS: PULSE 84; RESP 16; O2SAT 92
[2024-07-06] MEDS: Albuterol/Iprat 2.5/0.5MG 3 ML AMPUL.NEB INHALE ×2 (08:31→11:54)
[2024-07-06 09:08] VITALS: O2SAT 85; O2SAT 91; O2SAT 94
[2024-07-06] MEDS: Oseltamivir Phosphate 75 MG CAPSULE PO (10:25)
--- NOTE | 2024-07-06 11:35 | W.MHC.F2F ---
Service Date Service Date: 07/06/24 Encounter Date of encounter: 07/06/24 Reasons for Services Signs and symptoms assessed: New Oxygen Monitor BP physical deconditioning Reason for halfway: medication management and teach disease management Reason for physical therapy: home safety and mobility and therapeutic exercises Homebound: Leaving the home is medically contraindicated at this time without the asist of a device and/or another person due th the listed conditions above and below. Reason homebound: unsteady gait / fall risk Certification: Based on the above findings, I certify that this patient is confined to the home and needs intermittent halfway care, physical therapy and/or speech therapy, or continues to need occupational therapy. The patient is under my care, and I have initiated the establishment of the plan of care. The patient will be followed by a physician who will periodically review the plan of care. Time Spent With Patient Time: Total time managing care of this patient today ____ minutes.
--- NOTE | 2024-07-06 11:36 | P.DS_ITS ---
DS: Providers Provider Date of Service: 07/06/24 Date of admission: 07/03/24 22:51 Date of discharge: 07/06/24 Primary care physician: Scout Wynn MD DS: Diagnosis Discharge Diagnosis (1) Multifocal pneumonia: Status: Acute (2) Hypoxia: Status: Acute (3) Influenza A: Status: Acute (4) Acute hypoxemic respiratory failure: Status: Acute (5) Physical deconditioning: Status: Acute DS: Summary Hospital Course Hospital Course: Admission note HPI This is a 79-year-old female with pertinent history of hypertension who presents to the emergency department for evaluation of dyspnea. Patient states her symptoms began 4-5 days prior to presentation. Initially she was febrile and subsequently developed cough with intermittent sputum production. Also has been having malaise with easy fatigability and poor p.o. intake. Patient's daughter took patient's oxygen saturation which was found to be low on the day of presentation. She was satting in the 70s. Does endorse dyspnea which is worse with exertion. No orthopnea or PND. No leg edema. Also has been having wheezing but no history of asthma or COPD. 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 No chest pain, palpitations, abdominal pain, changes in urinary or bowel habits. 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 In the emergency department, patient was found to be satting 72% on room air and placed on supplemental oxygen. She tested positive for influenza. Imaging with multifocal pneumonia Hospital course The patient was evaluated for the following: # Acute hypoxemic respiratory failure due to influenza A bronchitis with concern for superimposed bacterial infection as CT scan showed infiltrates. Treated with IV antibiotics of Azithromycin and Ceftriaxone along with Tamiflu and systemic steroids with Scheduled and p.r.n. DuoNebs with good response during inpatient stay. blood cultures remained negative. She was weaned down O2 supplement but continued to require O2. repeated CXR showed improvement in areation and decrease infiltrates. She had home O2 eval which she qualifies for as her O2 level dropped to 86% on ambulation. To be discharged home on O2 supplement with a plan to wean down as tolerated. # PHysical deconditioning PT rec STR, patient prefer going home with PT. will have [facility] following her. # Hypertension Held Amlodipine and Atenolol as BP was soft. continued Carvedilol and restarted Amlodipine with good tolerance. To hold Atenolol on discharge and follow with PCP with 1 week readings. # Liver cysts: CT scan reported Nonspecific cystic lesions of the imaged liver. Please consider nonemergent dedicated liver imaging for additional characterization. To be follow by PCP as outpatient Discharge plan Hold Atenolol: monitor blood pressure for next week and check with PCP before restarting Continue 5 more days of Ceftin and Azithromycin Tamiflu as prescribed Prednisone for 3 more days Wean Oxygen down as tolerated To do physical therapy at home Follow with PCP for further work up of liver cysts Time Attestation Discharge Coordination Time (in mins): 45 Quality: Safe Use of Opioids Does Pt have an Active Cancer Diagnosis on the Problem List?: No Quality: Stroke Does the patient have a stroke diagnosis?: No Physical Exam Vital Signs: Vital Signs: Last Vital Signs Temp 97.8 F 07/06/24 06:56 Pulse 84 07/06/24 08:31 Resp 16 07/06/24 08:31 BP 152/90 H 07/06/24 06:56 Pulse Ox 92 07/06/24 06:56 O2 Del Method Nasal Cannula 07/06/24 06:56 O2 Flow Rate 3 07/06/24 06:56 BMI result Body Mass Index 28.2 Const: Other: Constitutional : Awake, interactive, not in distress Neck : Normal inspection, Supple Cardiovascular : RRR, no JVP, no lower extremity edema Respiratory : improved bilateral air entry, fine basal crackles, no wheezes Gastrointestinal: soft, lax, Normal bowel sounds, Non tender Skin : Warm, Dry Neurological : Alert & oriented x3, No focal deficit DS: Data Data Completed and Pending Labs on day of discharge: Laboratory Results - last 24 hr 07/06/24 06:00 WBC 6.2 RBC 4.68 Hgb 14.0 Hct 42.9 MCV 91.7 MCH 29.9 MCHC 32.6 RDW 14.3 Plt Count 206 MPV 9.2 L Immature Gran % (Auto) 0.5 H Neut % (Auto) 43.1 L Lymph % (Auto) 41.3 H Hickman % (Auto) 14.9 H Eos % (Auto) 0.0 Baso % (Auto) 0.2 Lymph # (Auto) 2.6 [place]ickman # (Auto) 0.9 Eos # (Auto) 0.0 Baso # (Auto) 0.0 Abs Immat Gran (auto) 0.03 Absolute Neuts (auto) 2.7 Absolute Nucleated RBC 0.000 Nucleated RBC % (auto) 0.0 Smear Tech's Comments VERIFIED Sodium 137 Potassium 4.4 Chloride 99 Carbon Dioxide 30 H Anion Gap 12 BUN 13 Creatinine 0.61 Estim Creat Clear Calc 71.5 Estimated GFR > 60 Random Glucose 95 Calcium 8.8 D Preliminary micro results at discharge 07/03/24 20:41 Blood Culture - Preliminary Blood - Venous No growth after 48 hours. 07/03/24 20:25 Blood Culture - Preliminary Blood - Venous No growth after [address] scan - chest: Radiologist's impression: IMPRESSION: 1. Multifocal airspace disease concerning for multifocal pneumonia. Recommend attention on follow-up to ensure resolution. 2. [id number] hiatal hernia. 3. Nonspecific cystic lesions of the imaged liver. Please consider nonemergent dedicated liver imaging for additional characterization. This document has been electronically signed by: Kemal Trejo MD on 07/04/2024 02:54:59 ITS Impressions Chest X-Ray 07/06/24 08:13 IMPRESSION: Improved aeration/decreased interstitial lung edema. Electronically signed by: Yaniv Bearden MD 07/06/2024 08:51 AM [facility] Discharge Plan Discharge Anticipated Discharge Date/Time: 07/06/24 11:28 Patient Disposition: Home Health Service Discharge Diagnosis: Hypoxia, Pneumonia, Influenza Referrals: Scout Brothers MD [Primary Care Provider] - 1 Week Discharge Medications: New prednisone 20 mg Tablet 40 mg PO DAILY Qty: 6 0RF oseltamivir [Tamiflu] 75 mg Capsule 75 mg PO Q12H Qty: 4 0RF azithromycin 500 mg tablet 500 mg PO DAILY 5 Days Qty: 5 0RF cefuroxime axetil 500 mg tablet 500 mg PO BID Qty: 10 0RF guaifenesin 600 mg tablet extended release 12hr 600 mg PO BID Qty: 14 0RF Continued carvedilol [Coreg] 6.25 mg tablet 6.25 mg PO BID amlodipine [Norvasc] 10 mg tablet 10 mg PO DAILY cilostazol 100 mg Tablet 100 mg PO DAILY gabapentin 600 mg Tablet 600 mg PO DAILY Held atenolol [Tenormin] 100 mg tablet 100 mg PO DAILY Hold Instructions: Monitor blood pressure at home for 1 week before restarting Discharge Orders: Discharge Order (Routine); Ordered 07/06/24 Ordered By: Antoine Castillo Diet: Advance to usual diet Activity on Discharge: As tolerated Stand Alone Forms: Patient Portal Discharge page Print Language: Japanese Care Plan Goals: Hold Atenolol: monitor blood pressure for next week and check with PCP before restarting Continue 5 more days of Ceftin and Azithromycin Tamiflu as prescribed Prednisone for 3 more days Wean Oxygen down as tolerated To do physical therapy at home Follow with PCP for further work up of liver cysts Health Concerns: Influenza Pneumonia Need of Oxygen Plan of Treatment: Antibiotics , Tamiflu Oxygen therapy Assessment: as above
--- NOTE | 2024-07-06 11:47 | MHC.CM.PN ---
Per MD patient medically cleared for dc home w/ new [facility] services for PT/OT. [facility] Family will provide transport at 12:15. RN aware.
[2024-07-06 11:55] VITALS: PULSE 80; RESP 16; O2SAT 93
[2024-07-06 11:57] VITALS: BP 137/89; PULSE 62; RESP 18; TEMP 36.4; O2SAT 94
[2024-07-06] MEDS: amLODIPine Besylate 5 MG TABLET PO (11:57)
== END 2024-07-06 13:59 | disposition home health service (06) | DRG 195 ==
LOC: HO.ED 23:10 → HO.EDOVER 23:22 → HO.S3 07-04 14:02
PROVIDERS: Physician Assistant Medical; Admitting Provider Student in an Organized Health Care Education/Training Program; Emergency Provider Emergency Medicine; PCP Internal Medicine; Visit Provider Student in an Organized Health Care Education/Training Program
DX: J10.00 Influenza due to other identified influenza virus with unspecified type of pneumonia (principal); I10 Essential (primary) hypertension; R53.81 Other malaise; B96.89 Other specified bacterial agents as the cause of diseases classified elsewhere; Z79.899 Other long term (current) drug therapy
CPT/HCPCS: 0241U; 36415; 71045; 71250; 80048; 80076; 82803; 83605; 83735; 83880; 84484; 85025; 87040; 93005; 94640; 97110; 97162; 99285; J0456; J0696; J1650; J2919; J3475

== ENCOUNTER → 2024-07-03 20:00 | Outpatient (BNV) | payer MEDICARE, MEDICAID, SELFPAY | PROVIDERS: Emergency Provider Emergency Medicine; PCP Internal Medicine; Visit Provider Student in an Organized Health Care Education/Training Program | DX: R06.02 Shortness of breath (principal) | CPT/HCPCS: 71045 ==

== ENCOUNTER → 2024-07-03 20:01 | Outpatient (BNV) | payer MEDICAID, SELFPAY | PROVIDERS: Admitting Provider Student in an Organized Health Care Education/Training Program; Emergency Provider Emergency Medicine; PCP Internal Medicine; Visit Provider Internal Medicine | DX: R06.02 Shortness of breath (principal); I45.2 Bifascicular block; R94.31 Abnormal electrocardiogram [ECG] [EKG] | CPT/HCPCS: 93010 ==

== ENCOUNTER 2024-07-03 22:51 | Outpatient (BNV) | payer MEDICAID, SELFPAY | END 2024-07-04 | PROVIDERS: Admitting Provider Student in an Organized Health Care Education/Training Program; Emergency Provider Emergency Medicine; PCP Internal Medicine; Visit Provider Radiology Neuroradiology | DX: J18.9 Pneumonia, unspecified organism (principal); K44.9 Diaphragmatic hernia without obstruction or gangrene | CPT/HCPCS: 71250 ==

== ENCOUNTER 2024-07-03 22:51 | Outpatient (BNV) | payer MEDICAID, SELFPAY | END 2024-07-06 08:13 | PROVIDERS: Admitting Provider Student in an Organized Health Care Education/Training Program; Emergency Provider Emergency Medicine; PCP Internal Medicine; Visit Provider Radiology Diagnostic Radiology | DX: J18.9 Pneumonia, unspecified organism (principal) | CPT/HCPCS: 71045 ==

== ENCOUNTER → 2024-07-03 22:51 | Outpatient (BNV) | payer MEDICAID, SELFPAY | PROVIDERS: Admitting Provider Student in an Organized Health Care Education/Training Program; Emergency Provider Emergency Medicine; PCP Internal Medicine; Visit Provider Student in an Organized Health Care Education/Training Program | DX: J18.9 Pneumonia, unspecified organism (principal); J10.1 Influenza due to other identified influenza virus with other respiratory manifestations; J96.01 Acute respiratory failure with hypoxia; R53.81 Other malaise | CPT/HCPCS: 99222; 99232; 99239 ==

== ENCOUNTER 2024-08-13 07:43 | Outpatient (AMB) | payer MEDICARE, MEDICAID, SELFPAY ==
--- NOTE | 2024-08-13 07:52 | MHC.PC.OV ---
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 Required: Yes Powerhouse Mechanic Supervisor Language: Hat Block Maker Name: Nayely Lantigua MD Information Interpreted: non-clinical & clinical Accompanied by: daughter and granddaughter Allergies No Known Allergies Allergy (Verified 08/13/24 08:14) Medication List - Last Reconciled 08/13/24 by Nayely Lantigua MD acetaminophen 1,000 mg PO Q6H PRN amlodipine (Norvasc) 10 mg PO DAILY amoxicillin 500 mg PO BID atenolol (Tenormin) 100 mg PO DAILY carvedilol (Coreg) 6.25 mg PO BID cilostazol 100 mg PO DAILY fluorometholone 0.1% 1 drp ophthalmic (eye) BID gabapentin 600 mg PO DAILY Tobacco use date assessed: 08/13/24 Fall risk assessment: No Falls in past year Dental Screening Dental Screen Date: 08/13/24 Did you have a dental visit in the last 12 months?: Yes Did you have a dental problem in the last 6 months where you did not have access to dental care?: No Was dental information given to patient?: Patient has dentist HPI HPI Comments History of Present Illness Details The patient is an 79-year-old female presenting with management concerns for chronic conditions including essential hypertension, mild depression, and tachycardia. Her hypertension is currently managed with amlodipine, which she indicates is effectively controlling her blood pressure. Despite depression being noted on her PHQ-9, she denies feeling depressed at present. In June, she suffered from an episode of influenza that required hospitalization and continuous oxygen therapy post-discharge. She currently remains on oxygen therapy at a rate of two liters daily. Liver function tests previously showed elevated enzyme levels; however, no recent updates have been provided. Past low calcium levels have since normalized upon retesting. Additional conditions include osteoarthritis, which presents with joint deformities, managed neuropathy treated with gabapentin in the evenings, and a history of gastritis and surgically repaired stomach hernia. Her social history notably reveals no tobacco or alcohol use. COUNTS INCLUDE 234 BEDS AT THE [facility] Medical History (Updated 08/13/24 @ 09:07 by Nayely Lantigua MD) Hypertension Surgical History History of appendectomy Family History (Updated 08/13/24 @ 08:20 by Nayely Lantigua MD) Father Cancer Mother Cancer Social History Household Members: Family Housing: House Do you presently have visiting nurse or other home services: No Alcohol intake: never Patient Tobacco Use Status: Never used Tobacco e-Cigarette/Vaping Use: Never Used Second Hand Smoke Exposure: No Advance Directives Date on File: 04/23/24 service: No Current occupational status: disabled Cognitive needs: Yes Hearing needs: No Vision needs: Yes Questionnaire PHQ-9 Over the last 2 weeks, how often have you been bothered by any of the following problems? 1. Little interest or pleasure in doing things: several days 2. Feeling down, depressed, or hopeless: not at all 3. Trouble falling or staying asleep, or sleeping too much: more than half the days 4. Feeling tired or having little energy: several days 5. Poor appetite or overeating: several days 6. Feeling bad about yourself - or that you are a failure or have let yourself or your family down: not at all 7. Trouble concentrating on things, such as reading the newspaper or watching television: not at all 8. Moving or speaking so slowly that other people could have noticed. Or the opposite - being so fidgety or restless that you have been moving around a lot more than usual: not at all 9. Thoughts that you would be better off or of hurting yourself in some way: not at all Total score: 5 Depression Screening Interpretation: Positive Depression Screening Follow-up: Existing condition and Follow-up Visit Requested Depression Screening Done: Yes 58891 - PHQ-9 Billing: Yes Source: Developed by Drs. Sanjay Ch, Adore Salcido, Ruy Christopher and colleagues, with an educational felicity from [employer]. Thrive Questionnaire Date Thrive assessed: 07/04/24 I am a: Patient What is your living situation today?: I have a steady place to live Within the past 12 months, did the food you bought not last and you didn't have the money to get more?: Never true Within the past 12 months, did you worry whether your food would run out before you got money to buy more?: Never true Do you have trouble paying for medicines?: I choose not to answer this question Do you have trouble getting transportation to medical appointments?: No Do you have trouble paying your heating and electricity bill?: I choose not to answer this question Do you have trouble taking care of your child, family member or friend?: No Do you have trouble with day-to-day activities such as bathing, preparing meals, shopping, managing finances, etc.?: Yes Are you currently unemployed and looking for a job?: No Are you interested in more education?: No Please select the resources that you would like help with: None Currently or been in a relationship where the following occur: No concerns reported THRIVE Score: 0 AUDIT C Alcohol Use Questionnaire (AUDIT-C) 1. How often do you have a drink containing alcohol?: Never Total Score: 0 Score Reviewed/Action Taken: No DIONNA-7 AMB Questionnaire DIONNA-7 Feeling nervous, anxious, or on edge: 0 = Not at all Not being able to stop or control worryin = Not at all Worrying too much about different things: 0 = Not at all Trouble relaxin = Not at all Being so restless that it is hard to sit still: 0 = Not at all Becoming easily annoyed or irritable: 0 = Not at all Feeling afraid as if something awful might happen: 0 = Not at all Total DIONNA-7 score (0-4 normal; 5-9 mild; 10-14 moderate; 15-21 severe): 0 Source: Developed by Drs. Sanjay Ch, Adore Salcido, Ruy Christopher and colleagues, with an educational felicity from [employer]. DIONNA-7 Assessment Billing DIONNA-7 Assessment Tool: DIONNA-7 Assessment 37358 Review of Systems Const All systems reviewed & are unremarkable except as noted in HPI and below Card Denies chest pain at rest, Denies chest pain with activity, Denies edema, Denies irregular heart rhythm, Denies claudication, Reports dyspnea, Denies dyspnea on exertion, Denies orthopnea, Denies paroxysmal nocturnal dyspnea and Denies slow heart rate Resp Denies cough, Reports dyspnea and Denies dyspnea on exertion GI Denies abdominal pain, Denies change in bowel habits, Denies excessive flatus, Denies nausea and Denies vomiting Denies urinary incontinence, Denies urinary hesitancy and Denies urinary urgency Musc Denies abnormal gait, Denies atrophy, Denies deformity and Denies limited range of motion Skin/Breast Denies bleeding lesions, Denies changing lesions, Reports lesions and Denies rash Neuro Denies abnormal gait, Denies behavioral changes and Denies lack of coordination Psych Denies behavioral changes Endo Denies cold intolerance Physical exam (Primary Care) Vital Signs: Last Vital Signs Pulse 98 08/13/24 07:53 BP 138/86 08/13/24 07:53 Pulse Ox 98 08/13/24 07:53 Oxygen Delivery Method Nasal Cannula 08/13/24 07:53 BMI result Body Mass Index 28.5 Tobacco/Smoking Status: Tobacco use Status Tobacco use date assessed 08/13/24 08/13/24 08:07 Patient Tobacco Use Status Never used Tobacco 08/13/24 08:07 e-Cigarette/Vaping Use Never Used 08/13/24 08:07 PHQ-9: PHQ-9 Score PHQ-9: Total score 5 08/13/24 08:17 Depression Screening Interpretation: Positive Depression Screening Follow-up: Existing condition and Follow-up Visit Requested Thrive Assessment: Date of Thrive Assessment Date Thrive assessed 07/04/24 08/13/24 08:07 Currently or been in a relationship where the following occur: No concerns reported Const Limitations: ambulation with walker Resp Effort & Inspection: normal respiratory effort Auscultation: clear to auscultation bilaterally Cardio Jugular venous distension: no JVD Rate: regular rate Rhythm: regular rhythm Heart sounds: S1 normal heart sound present and S2 normal heart sound present Extrem General: Yes full ROM Coding Level of Care Code New Pt Level 4 (17688) Complex EM visit Add On G2211 Diagnoses Essential hypertension I10 Oxygen dependent Z99.81 Venous (peripheral) insufficiency I87.2 History of anemia Z86.2 Transaminitis R74.01 Neuropathy G62.9 Additional Codes DIONNA-7 Assessment Billing - DIONNA-7 Assessment Tool: DIONNA-7 Assessment 92705 ([id number]) PHQ-9 - 52551 - PHQ-9 Billing: Yes ([id number]) Time Spent (min) 24 Assessment & Plan Assessment & Plan (1) Essential hypertension: Code(s): I10 - Essential (primary) hypertension Category: Medical (2) Oxygen dependent: Code(s): Z99.81 - Dependence on supplemental oxygen Category: Medical (3) Venous (peripheral) insufficiency: Code(s): I87.2 - Venous insufficiency (chronic) (peripheral) Category: Medical (4) History of anemia: Code(s): Z86.2 - Personal history of diseases of the blood and blood-forming organs and certain disorders involving the immune mechanism Category: Medical (5) Transaminitis: Code(s): R74.01 - Elevation of levels of liver transaminase levels Category: Medical (6) Neuropathy: Code(s): G62.9 - Polyneuropathy, unspecified Category: Medical Plan The patient's essential hypertension management will continue with amlodipine, and her tachycardia will be managed with carvedilol. Mild depression requires periodic assessment. The patient will continue oxygen therapy following her influenza episode. Follow-up is needed for further investigation of liver enzymes. Neuropathy will continue to be managed with gabapentin. A potential consultation with vascular surgery is considered for circulation concerns. Patient was informed and verbally consented to the use of an ambient scribe for clinic note documentation during this visit. We discussed with the patient the continuation of amlodipine and carvedilol for managing hypertension and tachycardia, respectively. The benefits of these medications were outlined, emphasizing the importance of maintaining blood pressure within normal ranges to prevent complications. We addressed the patient?s required oxygen therapy and the necessity of ongoing monitoring and support. The patient understood the rationale for possibly repeating liver function tests given previous elevations. The patient was informed about the value of maintaining fall precautions, given her osteoarthritis and current use of a walker. Consideration of a vascular consult was included for addressing circulatory concerns as mentioned. Follow-up consultations or lab work will be considered as needed based on the progress noted. Orders: Orders CA echo transthoracic complete Today R01.1 - Cardiac murmur, unspecified Complete Blood Count Auto Diff Today Z86.2 - Personal history of diseases of the blood and blood-forming organs and certain disorders involving the immune mechanism Comprehensive [place]. Panel Fast Today I10 - Essential (primary) hypertension Vitamin D 25-OH Total Today E55.9 - Vitamin D deficiency, unspecified Magnesium Today E83.41 - Hypermagnesemia XR DEXA axial skeleton Today Z78.0 - Asymptomatic menopausal state IRON PROFILE Today D64.9 - Anemia, unspecified, Z86.2 - Personal history of diseases of the blood and blood-forming organs and certain disorders involving the immune mechanism Lipid Panel Today I10 - Essential (primary) hypertension US abdomen eason w elastography Today R74.01 - Elevation of levels of liver transaminase levels Referrals Vascular Surgery Referral I87.2 - Venous insufficiency (chronic) (peripheral) Pulmonology Referral Z99.81 - Dependence on supplemental oxygen Medications: Discontinued azithromycin Discontinued Reason: Patient Completed Course 500 mg PO DAILY 5 days 5 tabs 0RF cefuroxime axetil Discontinued Reason: Patient Completed Course 500 mg PO BID 10 tabs 0RF prednisone Discontinued Reason: Patient Completed Course 40 mg (2 x 20 mg) PO DAILY 6 tabs 0RF guaifenesin ER Discontinued Reason: Patient Completed Course 600 mg PO BID 14 tabs 0RF oseltamivir (Tamiflu) Discontinued Reason: Patient Completed Course 75 mg PO Q12H 4 caps 0RF Patient Instructions: - Continue taking amlodipine and carvedilol as prescribed for hypertension and tachycardia, respectively. - Ensure consistent use of oxygen therapy; monitor for any changes in symptoms. - Follow up for repeat liver enzyme testing as discussed. - Continue using gabapentin at prescribed times to manage neuropathy. - Schedule any recommended consultations, including potential vascular evaluation for circulation issues. - Maintain safe mobility with the use of the walker and follow fall precautions.
[2024-08-13 07:53] VITALS: BP 138/86; PULSE 90; O2SAT 98; BMI 28.5
== END 2024-08-13 08:32 | disposition home or self-care (01) ==
LOC: HO.HMCH 07:44
PROVIDERS: PCP Internal Medicine; Visit Provider Internal Medicine
DX: I10 Essential (primary) hypertension (principal); Z99.81 Dependence on supplemental oxygen; I87.2 Venous insufficiency (chronic) (peripheral); Z86.2 Personal history of diseases of the blood and blood-forming organs and certain disorders involving the immune mechanism; R74.01 Elevation of levels of liver transaminase levels; G62.9 Polyneuropathy, unspecified

== ENCOUNTER → 2024-08-13 07:43 | Outpatient (BNVA) | payer MEDICARE, MEDICAID, SELFPAY | PROVIDERS: PCP Internal Medicine; Visit Provider Internal Medicine | DX: I10 Essential (primary) hypertension (principal); I87.2 Venous insufficiency (chronic) (peripheral); R74.01 Elevation of levels of liver transaminase levels; G62.9 Polyneuropathy, unspecified; R01.1 Cardiac murmur, unspecified; Z86.2 Personal history of diseases of the blood and blood-forming organs and certain disorders involving the immune mechanism; Z99.81 Dependence on supplemental oxygen | CPT/HCPCS: 96127; 99202 ==

== ENCOUNTER 2024-08-18 08:06 | Outpatient (REF) | payer MEDICARE, MEDICAID, SELFPAY ==
[2024-08-18 08:26] LABS: MANUAL DIFF FLAG NO
[2024-08-18 08:39] LABS: Basophils Absolute Auto 0.1 X10*3/uL (0.0-0.2); Basophils Percent Auto 0.8 % (0-2); Eosinophils Absolute Auto 0.5 X10*3/uL (0.0-0.4); Eosinophils Percent Auto 6.3 % (0-4); Hematocrit 40.5 % (37.0-47.0); Hemoglobin 12.9 g/dl (12.0-16.0); Imm Gran Abs Auto 0.03 X10*3/uL (0.00-0.03); Imm Gran Pct Auto 0.4 % (0.0-0.4); Lymphocytes Absolute Auto 1.4 X10*3/uL (1.2-4.9); Lymphocytes Percent Auto 20.1 % (20-40); Mean Corpuscular HGB Conc 31.9 g/dl (31.0-35.0); Mean Corpuscular Hemoglobin 30.5 pg (27.0-33.0); Mean Corpuscular Volume 95.7 fL (80.0-98.0); Mean Platelet Volume 9.3 fL (9.4-12.3); Monocytes Absolute Auto 0.8 X10*3/uL (0.1-1.2); Monocytes Percent Auto 11.7 % (2-11); Neutrophils Absolute Auto 4.3 x10*3/uL (2.0-8.3); Neutrophils Percent Auto 60.7 % (45-73); Platelet Count 245 X10*3/uL (160-400); Red Blood Count 4.23 X10*6/uL (4.20-5.50); Red Cell Distribution Width 13.9 % (11.0-16.0); White Blood Count 7.1 X10*3/uL (4.8-10.8)
[2024-08-18 09:45] LABS: Alanine Aminotransferase 20 U/L (0-31); Alkaline Phosphatase 88 U/L (39-117); Anion Gap 11 (12-20); Aspartate Amino Transferase 34 U/L (5-31); Bilirubin Total 0.4 mg/dL (0.0-1.0); Blood Urea Nitrogen 21 mg/dL (9-16); Calcium 9.8 mg/dL (8.4-10.2); Carbon Dioxide 29 mmol/L (22-29); Chloride 104 mmol/L (96-108); Cholesterol 264 mg/dL (<200); Estimated Glomerular Filt Rate > 60; Glucose Fasting 97 mg/dL (60-99); HDL Cholesterol 44 mg/dL (>40); Iron 82 mcg/dL (30-160); LDL Cholesterol Calculated 192 mg/dL (<100); Magnesium 2.1 mg/dL (1.6-2.6); Percent Iron Saturation 24 % (15-50); Potassium 4.5 mmol/L (3.3-5.1); Sodium 139 mmol/L (135-145); Total Iron Binding Capacity 340 mcg/dL (228-428); Total Protein 8.5 g/dL (6.5-8.0); Triglycerides 143 mg/dL (<150); Unsaturated Iron Binding 258 ug/dL
[2024-08-18 10:07] LABS: Vitamin D 25-OH Total 29.7 ng/mL (>30)
== END 2024-08-18 08:07 | disposition home or self-care (01) ==
LOC: HO.LAB 08:06
PROVIDERS: PCP Internal Medicine; Visit Provider Internal Medicine
DX: I10 Essential (primary) hypertension (principal); E83.41 Hypermagnesemia; D64.9 Anemia, unspecified; Z86.2 Personal history of diseases of the blood and blood-forming organs and certain disorders involving the immune mechanism
CPT/HCPCS: 36415; 80053; 80061; 82306; 83540; 83735; 85025

== ENCOUNTER 2024-08-28 09:07 | Outpatient (AMB) | payer MEDICARE, MEDICAID, SELFPAY ==
--- NOTE | 2024-08-28 09:12 | MHC.OFFVIS ---
Intake Visit Reasons: SELF PAY SPECIALIST/[facility] referral for Intake Note: New patient presents for . She has pain , swelling and cramping. Accompanied by: Daughter Allergies No Known Allergies Allergy (Verified 08/28/24 09:15) HPI HPI SELF PAY SPECIALIST/[facility] referral for : Details: Gayle, a pleasant Samoan speaking only 79yo female patient, is presenting today with her daughter and granddaughter for concerns of bilateral lower extremity swelling and pain, >5 years. Her granddaughter is interpreting for us. Complaints include pain in bilateral lower extremities, swelling of lower extremities, cramping, fatigue, and heaviness of the lower extremities. It has been affecting their daily activities including walking and standing. It is noted in bilateral legs. She is on O2 continuous for pneumonia she had in Jun. She is a nonsmoker and is not a diabetic. She ambulates with a rollator walker. Patient denies any previous venous surgery or injections. Patient denies any history of DVT/ PE. Patient denies any history of phlebitis. Trial of compression includes - elevation helps They now present for vascular evaluation regarding their varicose veins. [facility] Medical History Hypertension Surgical History History of appendectomy Family History Father Cancer Mother Cancer Social History Household Members: Family Housing: House Do you presently have visiting nurse or other home services: No Alcohol intake: never Patient Tobacco Use Status: Never used Tobacco e-Cigarette/Vaping Use: Never Used Second Hand Smoke Exposure: No Advance Directives Date on File: 04/23/24 service: No Current occupational status: disabled Cognitive needs: Yes Hearing needs: No Vision needs: Yes Review of Systems Const Reports as per HPI and Denies weakness ENT Reports Normal hearing present and Denies dizziness Card Reports as per HPI, Denies chest pain, Denies chest pain at rest, Denies chest pain with activity, Denies dyspnea and Denies dyspnea on exertion Resp Reports as per HPI, Denies cough, Denies dyspnea and Denies dyspnea on exertion GI Reports as per HPI, Denies abdominal pain, Denies nausea and Denies vomiting Musc Denies numbness Skin/Breast Reports as per HPI, Denies erythema and Denies wounds Neuro Reports Normal hearing present, Denies dizziness, Denies numbness, Denies Sensory deficit (Neuro) and Denies weakness Psych Reports no additional complaints Endo Reports no additional complaints Physical Exam Const General: healthy appearing and no acute distress Orientation/consciousness: patient oriented x3 HEENT Head: Yes normal to inspection Ears: hearing grossly normal bilaterally Mouth: Normal oral and palatal mucosa present Resp Effort & Inspection: normal respiratory effort and able to speak in complete sentences Auscultation: clear to auscultation bilaterally Cardio Jugular venous distension: no JVD Rate: regular rate Rhythm: regular rhythm Heart sounds: S1 normal heart sound present and S2 normal heart sound present Bruits: no abdominal aortic bruits, no carotid bruits, no femoral bruits and no renal bruits Peripheral pulses: Peripheral pulses 2+ throughout GI Inspection: Yes normal to inspection Palpation (GI): No Abdominal aortic bruit present Skin General skin exam: no rashes or lesions noted Wounds: no wounds Hair: normal Neuro General: patient oriented x3 Cranial nerves: Yes Normal hearing present Cognition (Neuro): normal cognition Gait exam (Neuro): Normal gait present Motor exam (neuro): 5/5 motor strength present throughout Sensory Exam: No Sensory deficit (Neuro) Extrem Other: Bilateral lower extremities: +1 peripheral nonpitting edema noted. Spider veins noted around the ankles. No tortuosities or varicosities noted. Palpable DP pulses noted. CEAP: C - 3 E - primary A - superficial P - reflux General: Yes normal to inspection, Yes full ROM, Yes capillary refill normal and Yes normal gait Assessment & Plan Assessment & Plan (1) Varicose veins of both lower extremities with inflammation: Code(s): I83.11 - Varicose veins of right lower extremity with inflammation; I83.12 - Varicose veins of left lower extremity with inflammation Category: Medical Plan: Gayle is presenting today with her daughter and granddaughter for concerns of bilateral lower extremity swelling and pain, >5y. She just recently moved here from [place], where the granddaughter states she was not getting great medical care. In short, the patient has evidence of venous insufficiency. I have discussed the pathophysiology with the patient. In addition I have provided informational material regarding venous disease to the patient. We have discussed conservative measures including compression, elevation, and exercise. We discussed the importance of wearing compression socks; we were unable to give them the handout we can provide, it is in Estonian only. I have taken the liberty of ordering venous insufficiency testing with the patient. They will follow up with me after testing. The patient had an opportunity to ask questions regarding the treatment plan. All questions were answered. Imaging studies, laboratory studies and physical exam results were discussed and reviewed in detail. No major barriers to understanding were identified. The patient expressed understanding and agreement with the above treatment plan. The patient is aware they should contact our office by phone for worsening of the current condition or the appearance of new symptoms. Thank you for allowing me to participate in the vascular care of this patient. If you have any questions or concerns regarding the treatment for the above condition please do not hesitate to contact me. The office telephone contact is [phone]. This note is constructed using voice recognition software. While every effort has been made to ensure accuracy, director of public safety errors may have been included. Thank you for allowing me to participate in the care of your patient. Yours sincerely, MARILYN James Orders: Orders US venous duplex LE BI 1 Week I83.11 - Varicose veins of right lower extremity with inflammation, I83.12 - Varicose veins of left lower extremity with inflammation Coding Level of Care Code New Pt Level 4 (02353) Diagnoses Varicose veins of both lower extremities with inflammation I83.11; I83.12
== END 2024-08-28 09:29 | disposition home or self-care (01) ==
PROVIDERS: PCP Internal Medicine; Visit Provider Physician Assistant Surgical
DX: I83.11 Varicose veins of right lower extremity with inflammation (principal); I83.12 Varicose veins of left lower extremity with inflammation
CPT/HCPCS: 99204

== ENCOUNTER → 2024-08-28 09:07 | Outpatient (BNVA) | payer MEDICARE, MEDICAID, SELFPAY | PROVIDERS: PCP Internal Medicine; Visit Provider Physician Assistant Surgical | DX: I83.11 Varicose veins of right lower extremity with inflammation (principal); I83.12 Varicose veins of left lower extremity with inflammation | CPT/HCPCS: 99202 ==

== ENCOUNTER → 2024-09-10 10:42 | Outpatient (REF) | payer MEDICARE, MEDICAID, SELFPAY ==
--- NOTE | 2024-09-10 10:46 | CA_ITS ---
Transthoracic Echocardiogram Patient (Last, First, Middle): Gayle Ordonez, Gender: Female Date of : 1945 Age: 79 Procedure Date: 09/10/2024 Procedure Type: Transthoracic Echocardiogram Location: OP Height: 162.56 cm Weight: 74.84 kg BSA: 1.80 m2 Heart Rate: 84 bpm BP: 138 / 82 mmHg Claims Support Specialist: SB Referring MD: Nayely Lantigua MD Symptoms: R01.1 - Cardiac murmur, unspecified Study Quality: Fair ECG Rhythm: Sinus Conclusions: - The left ventricular systolic function is normal. The visually estimated ejection fraction is between 60-65%. - No obvious valvular pathology seen on this study. Findings Procedure Information The quality of the study was technically difficult. The study quality is limited by patients body habitus and lung artifact. Left Ventricle Normal left ventricular cavity size. The left ventricular systolic function is normal. The visually estimated ejection fraction is between 60-65%. There is no evidence of regional wall motion abnormalities. Evidence suggests grade I (mild) diastolic dysfunction. There is mild septal asymmetric hypertrophy. Right Ventricle Normal right ventricular cavity size and systolic function. Atria Both atria are normal in size. Aortic Valve There is a normal trileaflet aortic valve. There is no aortic valve stenosis. Trace to mild aortic regurgitation. Mitral Valve The mitral valve appears normal. There is no mitral valve regurgitation. There is no mitral valve stenosis. Pulmonic Valve The pulmonic valve is likely normal. Tricuspid Valve Normal tricuspid valve structure. There is trace tricuspid valve regurgitation. There is no evidence of pulmonary hypertension. Great Vessels The asc aorta is normal in size. Venous The inferior vena cava is normal in size and collapses greater than 50% with inspiration. Pericardium/Pleural There is no evidence of pericardial effusion. Prior Study Comparison No prior study available for comparison. Recommendations, Care & Conclusions No obvious valvular pathology seen on this study. Measurements 2D Linear Measurements IVSd: 1.07 0.6-0.9/0.6-1.0 cm LVIDd: 4.37 3.9-5.3/4.2-5.9 cm LVIDd Index: 2.43 2.4-3.2/2.2-3.1 cm/m2 LVIDs: 2.17 2.0-3.6 cm LVPWd: 0.93 0.7-1.1 cm LA Diam: 1.40 2.7-3.8/3.0-4.0 cm LAIDs Index: 0.78 1.5-2.3 cm/m2 LV Mass: 182.40 67-162/88-224 g LV Mass Index: 101.33 43-95/49-115 g/m2 LVOT Diam: 2.10 3.0+(-)1.3 cm 2D Systolic Function EF 4C: 38.00 >55% EF 2C: 61.80 >55% EF BiP: 49.80 >55% Mitral Valve MV Pk E: 0.70 MV PK A: 0.86 MV Decel Time: 169.00 E/A: 0.80 E'Lateral: 6.85 E'Medial: 2.72 E/E' Med: 25.80 E/E' Lat: 10.30 PHT: 49.00 MVA PHT: 4.49 Decel [place]: 4.17 Aortic Valve AoV Pk James: 1.32 AoV Pk Grad: 7.00 MIQUEL: 2.38 LVOT LVOT Pk James: 0.93 LVOT Mn James: 0.62 LVOT VTI: 0.17 LVOT Pk Grad: 3.00 LVOT Mn Grad: 2.00 LVOT Diam: 2.10 LVOT Area: 3.46 Diastolic Function MV Pk E: 0.70 MV Pk A: 0.86 E/A: 0.80 E'Medial: 2.72 E/E' Med: 25.80 E' Laterial: 6.85 E/E' Lat: 10.30 Right Ventricle TAPSE (mm): 17.40 TVS' James: 13.20 Tricuspid Valve TR Pk James: 2.62 TR Pk Grad: 27.00 RA Press: 3.00 RVSP: 30.00 Great Vessels Aorta Sinus of Valsalva: 3.30 2.0-3.5 cm Ao Asc: 3.60 2.1-3.4 cm Pulmonary Valve PV Pk James: 1.04 Peak PV Grad: 4.00 Updated in Other Vendor System with Status of Final Chang Flores MD electronically signed on 09/11/2024 8:23:38 AM with status of Final
== END ==
LOC: HO.CARD 10:42
PROVIDERS: PCP Internal Medicine; Visit Provider Internal Medicine
DX: R01.1 Cardiac murmur, unspecified (principal)
CPT/HCPCS: 93306

== ENCOUNTER → 2024-09-10 10:46 | Outpatient (BNV) | payer MEDICARE, MEDICAID, SELFPAY | PROVIDERS: PCP Internal Medicine; Visit Provider Internal Medicine | DX: I42.2 Other hypertrophic cardiomyopathy (principal); I35.1 Nonrheumatic aortic (valve) insufficiency; I36.1 Nonrheumatic tricuspid (valve) insufficiency | CPT/HCPCS: 93306 ==

== ENCOUNTER 2024-09-18 09:50 | Outpatient (REF) | payer MEDICARE, MEDICAID, SELFPAY ==
--- NOTE | ~2024-09-18 | MM_ITS ---
EXAMINATION: DXA BONE DENSITY AXIAL HISTORY: Z78.0 - Asymptomatic menopausal state TECHNIQUE: [facility] Dual energy absorptiometry (DEXA) of the lumbar spine, total left hip, and femoral neck was performed. COMPARISON: There are no prior studies for comparison. FINDINGS: The bone mineral density of the lumbar spine is 0.841 with a T-score of -2.8, and a Z-score of -1.3. This is indicative of osteoporosis. The bone mineral density of the left total hip is 0.706 with a T-score of -2.4, and a Z-score of -0.6. This is indicative of osteopenia. The bone mineral density of the left femoral neck is 0.673 with a T-score of -2.6, and a Z-score of -0.6. This is indicative of osteoporosis. FRACTURE RISK: The FRAX index suggests a risk of major osteoporotic fracture of 18.0%, and of hip fracture 5.9%. MM/XR DEXA axial skeleton IMPRESSION: Based on bone mineral density, and according to World Health Organization (WHO) criteria, the diagnosis is consistent with osteoporosis. All bone density values are in grams per centimeter squared (g/cm2). Statistically, 68% of repeat scans fall within 1 SD (+/- 0.010 g/cm2 for AP spine L1-L4) and 1 SD (+/- 0.012 g/cm2 for femur total) FRAX is a trademark of the [employer]'s [place] for Metabolic Bone Disease, a World Health Organization (WHO) Collaborating Center. Electronically signed by: Sanjay Morales MD 09/18/2024 01:00 PM EDT
== END 2024-09-18 09:51 | disposition home or self-care (01) ==
LOC: HO.MAMMO 09:50
PROVIDERS: PCP Internal Medicine; Visit Provider Internal Medicine
DX: Z13.820 Encounter for screening for osteoporosis (principal); Z78.0 Asymptomatic menopausal state
CPT/HCPCS: 77080

== ENCOUNTER → 2024-09-18 10:00 | Outpatient (BNV) | payer MEDICARE, MEDICAID, SELFPAY | PROVIDERS: PCP Internal Medicine; Visit Provider Radiology Diagnostic Radiology | DX: E28.39 Other primary ovarian failure (principal) | CPT/HCPCS: 77080 ==

== ENCOUNTER 2024-09-24 09:51 | Outpatient (REF) | payer MEDICARE, MEDICAID, SELFPAY ==
--- NOTE | ~2024-09-24 | US_ITS ---
EXAMINATION: US ABDOMEN LIMITED WITH LIVER ELASTOGRAPHY HISTORY: R74.01 - Elevation of levels of liver transaminase levels TECHNIQUE: Real-time grayscale ultrasound imaging of the right upper quadrant was performed and images were reviewed. COMPARISON: There are no prior studies for comparison. FINDINGS: Liver: The right lobe of the liver measures 15.0 cm in size. The left lobe of the liver measures 9.4 cm in size. The liver demonstrates normal homogeneous echotexture. There are numerous echogenic masses throughout the liver measuring up 6 mm in size. There is a cyst in the left lobe measuring up to 4 mm. No intrahepatic biliary ductal dilatation is identified. There is normal hepatopedal flow in the portal vein. Ultrasound elastography of the liver was performed with 10 separate measurements of the liver parenchyma with the patient in the supine position. Measurements were obtained approximately 2 cm below Morris's capsule and perpendicular to the capsule. Images are of satisfactory quality. The median shear wave velocity is 1.35 m/s. The interquartile range/median (IQR/median) is 0.13. Gallbladder and biliary tree: The gallbladder is unremarkable, without evidence of calculi, wall thickening, or pericholecystic fluid. There is no sonographic Dominguez sign. The common bile duct is normal in caliber measuring 4 mm. Right Kidney: The right kidney measures 8.1 cm in length. There is a dominant right renal cyst measuring 4.9 x 5.0 x 5.7 cm. There is no hydronephrosis or calculi. Pancreas: The pancreas is obscured by bowel gas. Abdominal aorta and inferior vena cava: The visualized portions of the abdominal aorta and inferior vena cava are normal in caliber. There is no free fluid in the right upper quadrant. US/US abdomen eason w elastography IMPRESSION: Multiple echogenic lesions throughout the liver measuring up to 6 mm in size. MRI of the liver is recommended. The median shear wave velocity in the liver is 1.35 m/s, corresponding to a median liver stiffness of 5.60 kPa. The IQR/median value is 0.13. This is indicative of a quality data set. Findings are indicative of a low elastography value which rules out advanced chronic liver disease in asymptomatic patients. REFERENCE: Society of Radiologists in Ultrasound Liver Stiffness Thresholds (2020): LIVER STIFFNESS THRESHOLDS: *Shear wave velocity less than 1.3 m/s (Liver Stiffness equal or less than 5 kPa): High probability of being normal. *Shear wave velocity less than 1.7 m/s (Liver Stiffness less than 9 kPa): In the absence of other known clinical signs, rules out compensated advanced chronic liver disease. *Shear wave velocity between 1.7-2.1 m/s (Liver Stiffness 9-13 kPa): Suggestive of compensated advanced chronic liver disease but need further test for confirmation. *Shear wave velocity between 2.1-2.4 m/s (Liver Stiffness 13-17 kPa): Rules in compensated advanced chronic liver disease. *Shear wave velocity greater than 2.4 m/s (Liver Stiffness over 17 kPa): Suggestive of clinically significant portal hypertension. QUALITY OF DATA SET: *IQR/Median value equal or less than 0.15 implies a quality data set. *IQR/Median value over 0.15 implies a poor quality data set. SIGNIFICANT CHANGE FROM PRIOR EXAM: Significant change if liver stiffness measurement is 10% or greater from prior exam. OTHER CONSIDERATIONS: The stage of liver fibrosis may be overestimated in the setting of acute hepatitis, liver inflammation, elevated liver function tests, hepatic vascular congestion, obstructive cholestasis, non-fasting state, and infiltrative diseases such as amyloidosis and lymphoma. In some patients with NAFLD, the liver stiffness thresholds for compensated advanced chronic liver disease may be lower. In causes other than viral hepatitis and NAFLD, liver stiffness thresholds are not well established. Electronically signed by: Sanjay Morales MD 09/24/2024 11:08 AM EDT
== END 2024-09-24 09:52 | disposition home or self-care (01) ==
LOC: HO.US 09:51
PROVIDERS: PCP Internal Medicine; Visit Provider Internal Medicine
DX: R74.01 Elevation of levels of liver transaminase levels (principal)
CPT/HCPCS: 76705; 76981

== ENCOUNTER → 2024-09-24 09:56 | Outpatient (BNV) | payer MEDICARE, MEDICAID, SELFPAY | PROVIDERS: PCP Internal Medicine; Visit Provider Radiology Diagnostic Radiology | DX: R74.01 Elevation of levels of liver transaminase levels (principal); R93.2 Abnormal findings on diagnostic imaging of liver and biliary tract | CPT/HCPCS: 76705; 76981 ==

== ENCOUNTER 2024-10-09 08:20 | Outpatient (REF) | payer MEDICARE, MEDICAID, SELFPAY ==
--- NOTE | ~2024-10-09 | US_ITS ---
EXAMINATION: US LOWER EXTREMITY VENOUS (REFLUX EXAM), BILATERAL CLINICAL INFORMATION: Varices. COMPARISON: None. TECHNIQUE: Color flow triplex imaging and compression Doppler was performed to evaluate both the deep and the superficial systems bilaterally. To evaluate the superficial system, the examination was performed in the upright position. Color-flow Doppler ultrasound and compression ultrasound were utilized. In addition, maneuvers were utilized to demonstrate reflux. FINDINGS: 1. DEEP VENOUS ULTRASOUND OF THE RIGHT LOWER EXTREMITY: Common Femoral Vein: Compressible, normal respiratory variation and augmented flow. Femoral Vein: Compressible, normal color flow and augmentation. Popliteal Vein: Compressible, normal augmentation. Deep Reflux: There is no evidence of reflux in the deep system in either the common femoral vein, superficial femoral or the popliteal vein. There is no evidence of a Mayo's cyst. 2. SUPERFICIAL ULTRASOUND WITH DOPPLER OF RIGHT LOWER EXTREMITY: GREAT SAPHENOUS VEIN: Saphenofemoral Junction: 0.6 cm; Reflux: 0 ms Proximal Thigh: 0.5 cm; Reflux: 0 ms Mid Thigh: 0.4 cm; Reflux: 0 ms Distal Thigh: 0.4 cm; Reflux: 0 ms At Knee: 0.4 cm; Reflux: 424 ms Proximal Calf: 0.4 cm; Reflux: 0 ms Mid Calf: 0.3 cm; Reflux: 0 ms Distal Calf: 0.2 cm; Reflux: 0 ms DUPLICATED MEDIAL GREAT SAPHENOUS VEIN: Diameter: None imaged Reflux: NA DUPLICATED LATERAL GREAT SAPHENOUS VEIN: Diameter: 0.3 cm. Reflux: NA SMALL SAPHENOUS VEIN: Saphenopopliteal Junction: 0.2 cm; Reflux: 0 ms Proximal: 0.2 cm; Reflux: 0 ms Distal: 0.3 cm; Reflux: 0 ms VEIN OF GIACOMINI: Size: 0.2 cm. Reflux: NA PERFORATORS: Location: Small saphenous vein mid segment. Mid calf. Size: 0.1-0.2 cm. Reflux: 1908 ms in the small saphenous vein mid segment. VARICOSITIES: Location: None imaged. Size: NA Reflux: NA 3. DEEP VENOUS ULTRASOUND OF THE LEFT LOWER EXTREMITY: Common Femoral Vein: Compressible, normal respiratory variation and augmented flow. Femoral Vein: Compressible, normal color flow and augmentation. Popliteal Vein: Compressible, normal augmentation. Deep Reflux: There is no evidence of reflux in the deep system in either the common femoral vein, superficial femoral or the popliteal vein. There is a 5.7 cm lobulated anechoic lesion without flow on color Doppler interrogation in the left popliteal fossa. 4. SUPERFICIAL ULTRASOUND WITH DOPPLER OF LEFT LOWER EXTREMITY: GREAT SAPHENOUS VEIN: Saphenofemoral Junction: 0.8 cm; Reflux: 0 ms Proximal Thigh: 0.6 cm; Reflux: 2020 ms Mid Thigh: 0.4 cm; Reflux: 1872 ms Distal Thigh: 0.5 cm; Reflux: 936 ms At Knee: 0.3 cm; Reflux: 0 ms Proximal Calf: 0.4 cm; Reflux: 0 ms Mid Calf: 0.3 cm; Reflux: 0 ms Distal Calf: 0.2 cm; Reflux: 2788 ms DUPLICATED MEDIAL GREAT SAPHENOUS VEIN: Diameter: None imaged Reflux: NA DUPLICATED LATERAL GREAT SAPHENOUS VEIN: Diameter: 0.2 cm. Reflux: NA SMALL SAPHENOUS VEIN: Saphenopopliteal Junction: 0.2 cm; Reflux: 0 ms Proximal: 0.2 cm; Reflux: 0 ms Distal: 0.3 cm; Reflux: 0 ms VEIN OF GIACOMINI: Size: 0.3 cm. Reflux: NA PERFORATORS: Location: Small saphenous vein proximal segment. Proximal and mid calf. Size: 0.2 cm. Reflux: NA VARICOSITIES: Location: Mid and distal thigh and proximal calf. Size: 0.3 cm. Reflux: 2104 ms in the mid thigh and 1260 ms in the proximal calf. US/US venous duplex LE BI IMPRESSION: Right: Venous insufficiency, great saphenous vein at the knee. Perforators with reflux in the mid segment of small saphenous vein. Left: Venous insufficiency, great saphenous vein from the proximal to the distal thigh and at the ankle. 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 Perforators without reflux. 5.7 cm left popliteal cyst. Electronically signed by: Yaniv Bearden MD 10/09/2024 11:25 AM EDT
== END 2024-10-09 08:21 | disposition home or self-care (01) ==
LOC: HO.US 08:20
PROVIDERS: PCP Internal Medicine; Visit Provider Physician Assistant Surgical
DX: I83.11 Varicose veins of right lower extremity with inflammation (principal); I83.12 Varicose veins of left lower extremity with inflammation
CPT/HCPCS: 93970

== ENCOUNTER → 2024-10-09 08:22 | Outpatient (BNV) | payer MEDICARE, MEDICAID, SELFPAY | PROVIDERS: PCP Internal Medicine; Visit Provider Radiology Diagnostic Radiology | DX: I83.12 Varicose veins of left lower extremity with inflammation (principal); I87.2 Venous insufficiency (chronic) (peripheral) | CPT/HCPCS: 93970 ==

== ENCOUNTER 2024-10-16 12:30 | Outpatient (AMB) | payer MEDICARE, MEDICAID, SELFPAY ==
[2024-10-16 12:33] VITALS: BP 132/80; PULSE 81; O2SAT 95; BMI 28.8
--- NOTE | 2024-10-16 12:33 | MHC.OFFVIS ---
Vital Signs 10/16/24 12:33 Height 5 ft 4 in Weight 168 lb BMI 28.8 BP 132/80 Blood Pressure Location Lt brachial Pulse 81 Pulse Source Pulse Oximeter Pulse Oximetry (%) 95 Oxygen Delivery Method Nasal Cannula Oxygen Flow Rate 2 Intake Visit Reasons: osteoporosis/ per MD roberson early appt Intake Note: New patient internally referred by Nayely Lantigua, [facility]. Patient presents for Osteoporosis. She feels the pain, mainly in knees and herwaist, hips, thighs. She also states her right side is more painful.Her fingers hurt, too. She states that she has been in pain for 10 years. She is taking Tylenol for the pain. Gear Cutting Machine Operator Required: Yes Gear Cutting Machine Operator Services: Gear Cutting Machine Operator Offered & Declined Gear Cutting Machine Operator Name: Lachelle vinson Allergies No Known Allergies Allergy (Verified 10/16/24 12:43) Medication List - Last Reconciled 10/16/24 by Polly Harris MD acetaminophen 1,000 mg PO Q6H PRN amlodipine (Norvasc) 10 mg PO DAILY amoxicillin 500 mg PO BID atenolol (Tenormin) 100 mg PO DAILY carvedilol (Coreg) 6.25 mg PO BID cholecalciferol (vitamin D3) 25 mcg PO DAILY 90 days cilostazol 100 mg PO DAILY fluorometholone 0.1% 1 drp ophthalmic (eye) BID gabapentin 600 mg PO DAILY rosuvastatin 10 mg PO BEDTIME 90 days HPI Comments Details: Patient is a 79-year-old female with GERD secondary to hiatal hernia, hypertension complicated by coronary artery disease, hyperlipidemia, polyarticular osteoarthritis and osteoporosis here today to establish care Currently on oxygen 2/2 recent hospitalization for PNA. Needs to follow up with pulmonary. Patient had screening bone density 09/2024 which showed osteoporosis at the L spine, Left hip and Left femoral neck Risk Factor Assessment: ? Age: 79 ? Race: ? Menarche: 11 - 53 ? Family history including hip fracture: No ? Cigarette smoking: never ? Excessive alcohol: never ? Excessive caffeine: none High-risk medication assessment: No history of taking ? Glucocorticoids ? Excess thyroid hormone ? Anticonvulsants ? Heparin ? Glenvil ? SSRIs ? Aromatase Also complaining of right knee pain. History of known knee OA. Received gel injections in the past without any improvement. Was supposed to get a knee replacement however at the time of knee replacement had hospitalization for sepsis and so this was permanently deferred. [facility] Medical History Hypertension Surgical History History of appendectomy Family History Father Cancer Mother Cancer Social History Household Members: Family Housing: House Do you presently have visiting nurse or other home services: No Alcohol intake: never Patient Tobacco Use Status: Never used Tobacco e-Cigarette/Vaping Use: Never Used Second Hand Smoke Exposure: No Advance Directives Date on File: 04/23/24 service: No Current occupational status: disabled Cognitive needs: Yes Hearing needs: No Vision needs: Yes Review of Systems Const Details: Review of Systems Constitutional: Denies fever, chills, weight loss ENT: Denies vision changes, eye pain or eye redness, dental caries, dry mouth GI: Denies nausea, vomiting, diarrhea, abdominal pain, change in BM Pulm: Denies SOB, PEREZ, hemoptysis, wheezing Cards: Denies chest pain, palpitations Skin: Denies Raynaud's, rash, nail changes, photosensitivity, INCINERATOR PLANT SUPERVISOR: Denies headaches, weakness, paresthesias, recurrent falls MSK: as per HPI All other systems reviewed and are unremarkable except noted above Physical Exam Vital Signs: Last Vital Signs Pulse 81 10/16/24 12:33 BP 132/80 10/16/24 12:33 Pulse Ox 95 10/16/24 12:33 Oxygen Delivery Method Nasal Cannula 10/16/24 12:33 Oxygen Flow Rate 2 10/16/24 12:33 BMI result Body Mass Index 28.8 Vital signs reviewed Physical Examination CONSTITUITIONAL Patient alert and cooperative. Well appearing and in no apparent painful distress HEENT Conjunctiva and sclera clear. ?Pupils equal round and reactive to light. ?No lymphadenopathy. ? CHEST/RESPIRATORY SYSTEM Normal respiratory effort and able to speak in complete sentences. ?Clear to auscultation bilaterally. ?No crackles, rales, rhonchi, wheezes heard. CARDIAC SYSTEM Regular rate and rhythm. ?S1 and S2 heard no murmurs. ?Radial pulses intact bilaterally MSK Hands: ?Able to make a fist. No synovitis noted to the MCPs, PIPs or DIPs. ?No tenderness to palpation of these joints. Prominent Heberden nodes noted with ulnar deviation at the PIP of the right hand. Wrists: ?Full range of motion at the wrists without pain. ?No tenderness to palpation or synovitis noted to the wrists. Elbows: Full range of motion without pain. No tenderness, weakness, swelling, increased warmth or erythema. Shoulders: Full range of active range of motion without pain. No tenderness, weakness, swelling, increased warmth or erythema. Knees: ?Full range of motion. ?No increased warmth or erythema. Mild effusion noted to the right knee. Bilateral crepitations felt Ankles: Full range of motion. ?No tenderness, increased warmth or erythema.? Pitting edema noted to bilateral ankles. Patient wearing compression stockings. Feet: ?Negative squeeze test. ?No tenderness to palpation or swelling of the MTPs. Tender points:?No tenderness to palpation of the bilateral trapezius, supraspinatus, greater trochanters, anterior costochondral junctions, bilateral gluteal areas, bilateral suboccipital muscle insertions Hyper kyphotic spine SKIN Skin intact without rashes. Office Procedures AMB Joint Injection/Aspiration Joint Injection/Aspiration Details: Procedure was explained to the patient and consent was obtained. ? The area of interest was identified and confirmed with patient. ?This was subsequently cleaned with chlorhexidine x3. ? The area was then anesthetized using ethyl chloride spray. 40 mg Kenalog with 1 cc 1% lidocaine was injected without issue. ?Minimal to no bleeding. ?Patient tolerated procedure. Primary Site: right knee Prep: site was prepped using aseptic technique and ethochloride spray was applied Injected: 40 mg of, Kenalog, with 1 mL of and 1% plain lidocaine Approach Used: anterior Procedure: The patient tolerated the procedure well Coding 42422 - Large joint Procedure code (CPT) selection complete Office Meds lidocaine (PF) 10 mg/mL (1 %) injection solution Performing Provider: Polly Harris MD Performing Location: [facility] Rheumatology Administered by: Polly Harris MD on 10/16/24 14:10 Dose Route Admin Location Dispensed Lot Number Expiration Date [facility] Hogshead Dumper 1 mL Infiltration right knee 30 mL [id number] 07/14/26 95805-653-17 [facility] Kenalog 40 mg/mL suspension for injection Performing Provider: Polly Harris MD Performing Location: [facility] Rheumatology Administered by: Polly Harris MD on 10/16/24 14:10 Dose Route Admin Location Dispensed Lot Number Expiration Date [place] H[employer] Dumper 40 mg intra-articular right knee 1 mL [id number] 08/14/26 3262-5740-20 [facility] Results Reviewed Results Reviewed: Laboratory Tests 08/18/24 08:25 WBC 7.1 RBC 4.23 Hgb 12.9 Hct 40.5 Plt Count 245 Sodium 139 Potassium 4.5 Chloride 104 Carbon Dioxide 29 BUN 21 H Creatinine 0.79 AST 34 H ALT 20 Alkaline Phosphatase 88 25-OH Vitamin D Total 29.7 L DEXA 09/2024 FINDINGS: The bone mineral density of the lumbar spine is 0.841 with a T-score of -2.8, and a Z-score of -1.3. This is indicative of osteoporosis. The bone mineral density of the left total hip is 0.706 with a T-score of -2.4, and a Z-score of -0.6. This is indicative of osteopenia. The bone mineral density of the left femoral neck is 0.673 with a T-score of -2.6, and a Z-score of -0.6. This is indicative of osteoporosis. Assessment & Plan Assessment & Plan (1) Osteoporosis: Comment: DEXA 09/2024: AP Spine -2.8, Left femur neck -2.6, Left femur total -2.4 Code(s): M81.0 - Age-related osteoporosis without current pathological fracture Category: Medical Qualifiers: Osteoporosis type: age-related Presence of current pathological fracture: without current pathological fracture Qualified Code(s): M81.0 - Age-related osteoporosis without current pathological fracture Plan: #Osteoporosis Patient is an 79-year-old female with newly diagnosed osteoporosis here today to establish care. Given her history of GERD secondary to hiatal hernia I do not believe that oral bisphosphonates would be ideal for her. We will start the process for Prolia. Increase her vitamin-D from 1000 daily to 2000 daily given her low vitamin-D Plan - Start Prolia 60mg SC every 6 months - Vitamin D 2000U daily - RTC 4 months - Labs before visit: CMP and Vit D (2) Polyarticular osteoarthritis: Code(s): M15.9 - Polyosteoarthritis, unspecified Plan: #Polyarticular OA Patient with polyarticular osteoarthritis, complaining of right knee pain today. Status post knee injection. We will re-evaluate in 4 months to see if it was efficacious Plan I spent 45 minutes reviewing the record and labs, taking a history, examining the patient, discussing the treatment plan, ordering diagnostic work up and documenting in the medical record Orders: Orders Vitamin D 25-OH Total 4 Months E55.9 - Vitamin D deficiency, unspecified, M81.0 - Age-related osteoporosis without current pathological fracture AMB Joint Injection/Aspiration Today M17.11 - Unilateral primary osteoarthritis, right knee Comprehensive Met. Panel 4 Months E55.9 - Vitamin D deficiency, unspecified, M81.0 - Age-related osteoporosis without current pathological fracture Medications: New Kenalog (triamcinolone acetonide) 40 mg intra-articular ONCE 1 mL 0RF NS M17.11 - Unilateral primary osteoarthritis, right knee lidocaine (PF) 1 mL Infiltration ONCE 2 mL 0RF M17.11 - Unilateral primary osteoarthritis, right knee Changed From cholecalciferol (vitamin D3) 25 mcg (1/2 x 50 mcg (2,000 unit)) PO DAILY 90 days 45 caps 1RF E55.9 - Vitamin D deficiency, unspecified To cholecalciferol (vitamin D3) 50 mcg PO DAILY 90 days 90 caps 1RF E55.9 - Vitamin D deficiency, unspecified From cholecalciferol (vitamin D3) 25 mcg PO DAILY 90 days 90 caps 1RF E55.9 - Vitamin D deficiency, unspecified To cholecalciferol (vitamin D3) 25 mcg (1/2 x 50 mcg (2,000 unit)) PO DAILY 90 days 45 caps 1RF E55.9 - Vitamin D deficiency, unspecified Coding Level of Care Code New Pt Level 4 (02433) Diagnoses Age-related osteoporosis without current pathological fracture M81.0 Osteoporosis type: age-related Presence of current pathological fracture: without current pathological fracture Polyarticular osteoarthritis M15.9 CPT Codes Coding - 81731 Large joint: 36938 - Large joint ([id number])
== END 2024-10-16 13:28 | disposition home or self-care (01) ==
LOC: HO.RHE 12:31
PROVIDERS: PCP Internal Medicine; Visit Provider Student in an Organized Health Care Education/Training Program
DX: M81.0 Age-related osteoporosis without current pathological fracture (principal); M15.9 Polyosteoarthritis, unspecified; M17.11 Unilateral primary osteoarthritis, right knee
CPT/HCPCS: 20610; 99204

== ENCOUNTER → 2024-10-16 12:30 | Outpatient (BNVA) | payer MEDICARE, MEDICAID, SELFPAY | PROVIDERS: PCP Internal Medicine; Visit Provider Student in an Organized Health Care Education/Training Program | DX: M81.0 Age-related osteoporosis without current pathological fracture (principal); M17.11 Unilateral primary osteoarthritis, right knee; I25.10 Atherosclerotic heart disease of native coronary artery without angina pectoris; E55.9 Vitamin D deficiency, unspecified | CPT/HCPCS: 20610; 99202; J3300 ==

== ENCOUNTER 2024-11-12 10:16 | Outpatient (AMB) | payer MEDICARE, MEDICAID, SELFPAY ==
--- NOTE | 2024-11-12 10:25 | A.OFFVIS_ITS ---
Vital Signs 11/12/24 10:26 Height 5 ft 4 in Weight 169 lb 12.095 oz BMI 29.1 BP 122/70 Blood Pressure Location Lt brachial Position Sitting Pulse 76 Pulse Source Pulse Oximeter Pulse Oximetry (%) 96 Oxygen Delivery Method Nasal Cannula Oxygen Flow Rate 2 Intake Visit Reasons: Dependence on supplemental oxygen Accompanied by: Grand Child Allergies No Known Allergies Allergy (Verified 11/12/24 10:40) HPI Comments Details: The patient is here for pulmonary evaluation. The patient is an 79 year woman who recently moved from [place] and was in her usual state health until June when she started developing flu-like symptoms. She develop worsening shortness of breath cough and she had some malaise. She was noted to be hypoxic and she was brought to the [facility] ED where she was tested positive for the flu A. She also had a chest x-ray abnormal with evidence of bronchopneumonia. She had a CT scan of the chest which was personally by me demonstrating significant airspace disease bilaterally bronchitis and pneumonia consistent with likely postviral bacterial pneumonia and if not influenza pneumonia. She was given antibiotics. She did require oxygen. And she was given respiratory inhalers. He was able to be discharged home on oxygen. Currently she is on 2 L continuous. During the office visit we did wean her off the oxygen and she actually saturating around 93% on room air sitting. Once she was moving around the patient did desaturate down to 88% and we did place her on 2 L pulse allowing her pulse ox to be around 94%. Therefore she does qualify for POC. The POC will provide her better portability outside of the home. Also on the blood work she did have it venous blood gas demonstrating hypercarbia in this case chronic hypercarbic respiratory failure. Will go ahead and request a repeat blood gas at this time. She does have daytime drowsiness. Her [place] score is elevated 04/08. She may have some untreated sleep apnea resulting in the hypercarbia. 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 But otherwise she has been a lifelong nonsmoker. Also to note her CT scan I personally reviewed she does have a large hiatal hernia. At this point she will continue with the reflux diet. Will consider a barium swallow once we stabilize her overall respiratory condition. As far as inhalers she has a rescue inhaler she will use that for now. No astrid tional inhalers required. [facility] Medical History (Updated 11/12/24 @ 22:30 by Prabhakar Monte MD) Hiatal hernia COPD (chronic obstructive pulmonary disease) Chronic respiratory failure Pneumonia Hypertension Surgical History History of appendectomy Family History Father Cancer Mother Cancer Social History Household Members: Family Housing: House Do you presently have visiting nurse or other home services: No Alcohol intake: never Patient Tobacco Use Status: Never used Tobacco e-Cigarette/Vaping Use: Never Used Second Hand Smoke Exposure: No Advance Directives Date on File: 04/23/24 service: No Current occupational status: disabled Cognitive needs: Yes Hearing needs: No Vision needs: Yes Review of Systems Const Reports daytime sleepiness and Reports difficulty sleeping ENT Reports nasal congestion Card Denies chest pain and Reports dyspnea on exertion Resp Reports cough and Reports dyspnea on exertion GI Reports as per HPI, Reports dyspepsia and Reports heartburn Musc Reports abnormal gait and Reports myalgias Skin/Breast Denies rash Neuro Reports abnormal gait Luis/Lymph Reports no additional complaints Physical Exam Vital Signs: Last Vital Signs Pulse 76 11/12/24 10:26 BP 122/70 11/12/24 10:26 Pulse Ox 96 11/12/24 10:26 Oxygen Delivery Method Nasal Cannula 11/12/24 10:26 Oxygen Flow Rate 2 11/12/24 10:26 BMI result Body Mass Index 29.1 Const General: comfortable HEENT Head: Yes normocephalic Neck Neck: Yes supple Chest Chest palpation & inspection: normal inspection of the chest Resp Effort & Inspection: normal respiratory effort Auscultation: diminished lung sounds Cardio Heart sounds: S1 normal heart sound present and S2 normal heart sound present GI Palpation (GI): Soft to palpation Skin General skin exam: no rashes or lesions noted Extrem General: Yes no clubbing, cyanosis or edema Assessment & Plan Assessment & Plan (1) Pneumonia: Code(s): J18.9 - Pneumonia, unspecified organism Category: Medical Qualifiers: Pneumonia type: due to influenza A virus Qualified Code(s): J10.00 - Influenza due to other identified influenza virus with unspecified type of pneumonia (2) Chronic respiratory failure: Code(s): J96.10 - Chronic respiratory failure, unspecified whether with hypoxia or hypercapnia Category: Medical Qualifiers: Respiratory failure complication: hypoxia Qualified Code(s): J96.11 - Chronic respiratory failure with hypoxia (3) COPD (chronic obstructive pulmonary disease): Code(s): J44.9 - Chronic obstructive pulmonary disease, unspecified Category: Medical Qualifiers: COPD type: chronic bronchitis Chronic bronchitis type: simple Qualified Code(s): J41.0 - Simple chronic bronchitis (4) Hiatal hernia: Code(s): K44.9 - Diaphragmatic hernia without obstruction or gangrene Category: Medical Plan CXR PFTs Overnight oximetry on RA Oxygen revision: POC at 2L/pulse with activity for better portability, continue 2L/min while sleeping Bloodwork Consider in lab PSG SANIYA as needed F/U 2-3 months Orders: Orders XR chest 2V Today J18.9 - Pneumonia, unspecified organism Venous Blood Gas Today J96.10 - Chronic respiratory failure, unspecified whether with hypoxia or hypercapnia Immunoglobulin E Today J96.10 - Chronic respiratory failure, unspecified whether with hypoxia or hypercapnia Basic Metabolic Panel Today J96.10 - Chronic respiratory failure, unspecified whether with hypoxia or hypercapnia PFT pulmonary function test Today J18.9 - Pneumonia, unspecified organism Immunoglobulins,IgG IgA IgM Today J96.10 - Chronic respiratory failure, unspecified whether with hypoxia or hypercapnia Erythrocyte Sedimentation Rate Today J96.10 - Chronic respiratory failure, unspecified whether with hypoxia or hypercapnia Overnight Pulse Oximetry Today J41.0 - Simple chronic bronchitis Coding Level of Care Code New Pt Level 4 (06938) Diagnoses Pneumonia due to influenza A virus J10.00 Pneumonia type: due to influenza A virus Chronic respiratory failure with hypoxia J96.11 Respiratory failure complication: hypoxia Simple chronic bronchitis J41.0 COPD type: chronic bronchitis Chronic bronchitis type: simple Hiatal hernia K44.9 Time Spent (min) 40
[2024-11-12 10:26] VITALS: BP 122/70; PULSE 76; O2SAT 96; BMI 29.1
== END 2024-11-12 11:16 | disposition home or self-care (01) ==
LOC: HO.HPS 10:17
PROVIDERS: PCP Internal Medicine; Referring Provider Internal Medicine; Visit Provider Hospitalist
DX: J10.00 Influenza due to other identified influenza virus with unspecified type of pneumonia (principal); J96.11 Chronic respiratory failure with hypoxia; J41.0 Simple chronic bronchitis; K44.9 Diaphragmatic hernia without obstruction or gangrene
CPT/HCPCS: 99204

== ENCOUNTER 2024-11-12 10:16 | Outpatient (REF) | payer MEDICARE, MEDICAID, SELFPAY ==
--- NOTE | ~2024-11-12 | XR_ITS ---
EXAMINATION: XR CHEST 2 VIEWS HISTORY: J18.9 - Pneumonia, unspecified organism COMPARISON: Comparison is made with the prior examination dated 07/06/2024. FINDINGS: PA and lateral views of the chest are submitted. The lungs are expanded and clear. There is no pleural effusion, pneumothorax, or pulmonary vascular congestion. The heart is normal in size. There is a large hiatal hernia. There is scoliosis and degenerative disc disease of the spine. XR/XR chest 2V IMPRESSION: Large hiatal hernia. No acute cardiopulmonary abnormality. Electronically signed by: Sanjay Morales MD 11/12/2024 12:33 PM EDT
[2024-11-12 12:14] LABS: Venous Blood Gas Refer to POC result
[2024-11-12 12:15] LABS: VBG Base Excess 5.4 mmol/L; VBG HCO3 31 mmol/L (22-26); VBG pCO2 50 mmHg; VBG pH 7.39 (7.32-7.43); VBG pO2 49 mmHg
[2024-11-12 12:44] LABS: Anion Gap 13 (12-20); Blood Urea Nitrogen 27 mg/dL (9-16); Calcium 9.7 mg/dL (8.4-10.2); Carbon Dioxide 28 mmol/L (22-29); Chloride 103 mmol/L (96-108); Estimated Glomerular Filt Rate > 60; Glucose Random 97 mg/dL (60-115); Potassium 4.3 mmol/L (3.3-5.1); Sodium 140 mmol/L (135-145)
[2024-11-12 12:59] LABS: Erythrocyte Sedimentation Rate 38 MM/HR (0-20)
[2024-11-13 05:09] LABS: IgA 220 mg/dL (70-320); IgG 1867 mg/dL (600-1540); IgM 70 mg/dL (50-300)
[2024-11-13 21:48] LABS: Immunoglobulin E 159 kU/L (<OR=114)
== END 2024-11-12 10:17 | disposition home or self-care (01) ==
LOC: HO.LAB 10:16
PROVIDERS: PCP Internal Medicine; Referring Provider Internal Medicine; Visit Provider Hospitalist
DX: J96.10 Chronic respiratory failure, unspecified whether with hypoxia or hypercapnia (principal); J18.9 Pneumonia, unspecified organism
CPT/HCPCS: 36415; 71046; 80048; 82784; 82785; 82803; 85652; 99202

== ENCOUNTER → 2024-11-12 12:11 | Outpatient (BNV) | payer MEDICARE, MEDICAID, SELFPAY | PROVIDERS: PCP Internal Medicine; Referring Provider Internal Medicine; Visit Provider Radiology Diagnostic Radiology | DX: K44.9 Diaphragmatic hernia without obstruction or gangrene (principal) | CPT/HCPCS: 71046 ==

== ENCOUNTER 2025-01-21 07:49 | Outpatient (AMB) | payer MEDICARE, MEDICAID, SELFPAY ==
[2025-01-21 07:53] VITALS: BP 136/80; PULSE 79; O2SAT 96; BMI 31.8
--- NOTE | 2025-01-21 07:53 | MHC.PC.OV ---
Vital Signs 01/21/25 07:53 Height 5 ft 2 in Weight 174 lb BMI 31.8 BP 136/80 Blood Pressure Location Lt brachial Position Sitting Pulse 79 Pulse Source Pulse Oximeter Pulse Oximetry (%) 96 Oxygen Delivery Method Nasal Cannula Intake Visit Reasons: bp Quahogger Required: No Accompanied by: Self / Same As Patient Allergies No Known Allergies Allergy (Verified 01/21/25 08:05) Medication List - Last Reconciled 01/21/25 by Nayely Lantigua MD acetaminophen 1,000 mg PO Q6H PRN alendronate 70 mg PO QWEEK 90 days amlodipine (Norvasc) 10 mg PO DAILY atenolol (Tenormin) 100 mg PO DAILY Held on 07/06/24. Instructions: Monitor blood pressure at home for 1 week before restarting carvedilol (Coreg) 6.25 mg PO BID cholecalciferol (vitamin D3) 50 mcg PO DAILY 90 days fluorometholone 0.1% 1 drp ophthalmic (eye) BID gabapentin 600 mg PO DAILY rosuvastatin 10 mg PO BEDTIME 90 days Tobacco use date assessed: 08/13/24 Fall risk assessment: No Falls in past year Last assessed Fall Risk: 01/21/25 Dental Screening Dental Screen Date: 08/13/24 HPI HPI Comments History of Present Illness Details The patient is an 79-year-old female presenting for management of chronic conditions and preventative care. She has a history of essential hypertension, currently managed with amlodipine and carvedilol. Her blood pressure was recorded at 136/80 mmHg, indicating good control. The patient also has osteoporosis, for which she is taking alendronate 70 mg weekly. She has a scheduled appointment with rheumatology for further management. Depression is noted with a PHQ-9 score of 5, indicating mild depression. The patient reports feeling slightly down but is not significantly affected by these symptoms. She has chronic obstructive pulmonary disease (COPD) and is on supplemental oxygen therapy. A follow-up with pulmonology is planned. The patient experiences venous insufficiency with varicose veins, which are not painful. She reports leg pain associated with walking, which may be due to arthritis. [facility] Medical History (Updated 01/21/25 @ 08:26 by Nayely Lantigua MD) Hiatal hernia COPD (chronic obstructive pulmonary disease) Chronic respiratory failure Pneumonia Hypertension Surgical History History of appendectomy Family History Father Cancer Mother Cancer Social History Household Members: Family Housing: House Do you presently have visiting nurse or other home services: No Alcohol intake: never Patient Tobacco Use Status: Never used Tobacco Tobacco use type: Cigarette e-Cigarette/Vaping Use: Never Used Second Hand Smoke Exposure: No Advance Directives Date on File: 04/23/24 service: No Current occupational status: disabled Cognitive needs: Yes Hearing needs: No Vision needs: Yes Questionnaire PHQ-9 Over the last 2 weeks, how often have you been bothered by any of the following problems? 1. Little interest or pleasure in doing things: several days 2. Feeling down, depressed, or hopeless: not at all 3. Trouble falling or staying asleep, or sleeping too much: more than half the days 4. Feeling tired or having little energy: several days 5. Poor appetite or overeating: several days 6. Feeling bad about yourself - or that you are a failure or have let yourself or your family down: not at all 7. Trouble concentrating on things, such as reading the newspaper or watching television: not at all 8. Moving or speaking so slowly that other people could have noticed. Or the opposite - being so fidgety or restless that you have been moving around a lot more than usual: not at all 9. Thoughts that you would be better off or of hurting yourself in some way: not at all Total score: 5 Depression Screening Interpretation: Positive Depression Screening Follow-up: Existing condition and Follow-up Visit Requested Depression Screening Done: Yes 12519 - PHQ-9 Billing: Yes Source: Developed by Drs. Sanjay Ch, Adore Salcido, Ruy Christopher and colleagues, with an educational felicity from [employer]. Thrive Questionnaire Date Thrive assessed: 08/13/24 I am a: Patient What is your living situation today?: I have a steady place to live Within the past 12 months, did the food you bought not last and you didn't have the money to get more?: Never true Within the past 12 months, did you worry whether your food would run out before you got money to buy more?: Never true Do you have trouble paying for medicines?: I choose not to answer this question Do you have trouble getting transportation to medical appointments?: No Do you have trouble paying your heating and electricity bill?: I choose not to answer this question Do you have trouble taking care of your child, family member or friend?: No Do you have trouble with day-to-day activities such as bathing, preparing meals, shopping, managing finances, etc.?: Yes Are you currently unemployed and looking for a job?: No Are you interested in more education?: No Please select the resources that you would like help with: None Currently or been in a relationship where the following occur: No concerns reported THRIVE Score: 0 AUDIT C Alcohol Use Questionnaire (AUDIT-C) 1. How often do you have a drink containing alcohol?: Never 3. How often do you have six or more drinks on one occasion?: Never Total Score: 0 Score Reviewed/Action Taken: No DIONNA-7 AMB Questionnaire DIONNA-7 Date DIONNA - 7 assessed: 01/21/25 Feeling nervous, anxious, or on edge: 0 = Not at all Not being able to stop or control worryin = Not at all Worrying too much about different things: 0 = Not at all Trouble relaxin = Not at all Being so restless that it is hard to sit still: 0 = Not at all Becoming easily annoyed or irritable: 0 = Not at all Feeling afraid as if something awful might happen: 0 = Not at all Total DIONNA-7 score (0-4 normal; 5-9 mild; 10-14 moderate; 15-21 severe): 0 Source: Developed by Drs. Sanjay Ch, Adore Salcido, Ruy Christopher and colleagues, with an educational felicity from [employer]. DIONNA-7 Assessment Billing DIONNA-7 Assessment Tool: DIONNA-7 Assessment 63830 Review of Systems Const All systems reviewed & are unremarkable except as noted in HPI and below Card Denies chest pain at rest, Denies chest pain with activity, Denies edema, Denies irregular heart rhythm, Denies claudication, Denies dyspnea, Denies dyspnea on exertion, Denies orthopnea, Denies paroxysmal nocturnal dyspnea and Denies slow heart rate Resp Denies cough, Denies dyspnea and Denies dyspnea on exertion GI Denies abdominal pain, Denies change in bowel habits, Denies excessive flatus, Denies nausea and Denies vomiting Physical exam (Primary Care) Vital Signs: Last Vital Signs Pulse 79 01/21/25 07:53 BP 136/80 01/21/25 07:53 Pulse Ox 96 01/21/25 07:53 Oxygen Delivery Method Nasal Cannula 01/21/25 07:53 BMI result Body Mass Index 31.8 BMI Assessment/Plan discussion: High BMI High, discussed plan: lifestyle, weight reduction, dietary and physical activity Tobacco/Smoking Status: Tobacco use Status Tobacco use date assessed 08/13/24 01/21/25 08:01 Patient Tobacco Use Status Never used Tobacco 01/21/25 08:01 Tobacco use type Cigarette 01/21/25 08:01 e-Cigarette/Vaping Use Never Used 01/21/25 08:01 PHQ-9: PHQ-9 Score PHQ-9: Total score 5 01/21/25 08:08 Depression Screening Interpretation: Positive Depression Screening Follow-up: Existing condition and Follow-up Visit Requested Thrive Assessment: Date of Thrive Assessment Date Thrive assessed 08/13/24 01/21/25 08:01 Currently or been in a relationship where the following occur: No concerns reported Const Limitations: ambulation with walker Resp Effort & Inspection: normal respiratory effort Auscultation: clear to auscultation bilaterally Cardio Jugular venous distension: no JVD Rate: regular rate Rhythm: regular rhythm Heart sounds: S1 normal heart sound present and S2 normal heart sound present Extrem General: Yes full ROM Immunizations pneumoc 20-sammy conj-dip cr(PF) 0.5 mL IM syringe Performing Provider: Nayely Lantigua MD [facility] Administered by: Olga Chand CMA on 01/21/25 08:24 Dose Route Admin Location Dispensed Lot Number Expiration Date [facility] Photography Spotter 0.5 mL IM Right Deltoid 0.5 mL [id number] 01/14/26 3665-2673-34 WYETH/PFIZER Total Dispensed Waste 0.5 mL 0 % VIS Given Date VIS Provided VIS Publication Date 01/21/25 Single Vaccine 24 Eligibility Eligibility Date Funding Source Not [facility] Eligible 01/21/25 Private Tenivac (PF) 5 Lf unit-2 Lf unit/0.5 mL intramuscular suspension Performing Provider: Nayely Lantigua MD Performing [facility] Administered by: Olga Chand CMA on 01/21/25 08:25 Dose Route Admin Location Dispensed Lot Number Expiration Date [employer] Spot[employer] 0.5 mL IM Left Deltoid 0.5 mL [id number] 08/14/26 50523-447-13 [employer] Total Dispensed Waste 0.5 mL 0 % VIS Given Date VIS Provided VIS Publication Date 01/21/25 Single Vaccine 20 Eligibility Eligibility Date Funding Source Not [facility] Eligible 01/21/25 Private Coding Level of Care Code Est Pt Level 4 (00573) Complex EM visit Add On G2211 Diagnoses Essential hypertension I10 Mild recurrent major depression F33.0 Age-related osteoporosis without current pathological fracture M81.0 Osteoporosis type: age-related Presence of current pathological fracture: without current pathological fracture Simple chronic bronchitis J41.0 COPD type: chronic bronchitis Chronic bronchitis type: simple Skin lesion L98.9 Additional Codes PHQ-9 - 65397 - PHQ-9 Billing: Yes ([id number]) DIONNA-7 Assessment Billing - DIONNA-7 Assessment Tool: DIONNA-7 Assessment [id number] ([id number]) Time Spent (min) 21 Assessment & Plan Assessment & Plan (1) Essential hypertension: Code(s): I10 - Essential (primary) hypertension Category: Medical (2) Mild recurrent major depression: Code(s): F33.0 - Major depressive disorder, recurrent, mild Category: Medical (3) Osteoporosis: Comment: DEXA 09/2024: AP Spine -2.8, Left femur neck -2.6, Left femur total -2.4 Code(s): M81.0 - Age-related osteoporosis without current pathological fracture Category: Medical Qualifiers: Osteoporosis type: age-related Presence of current pathological fracture: without current pathological fracture Qualified Code(s): M81.0 - Age-related osteoporosis without current pathological fracture (4) COPD (chronic obstructive pulmonary disease): Code(s): J44.9 - Chronic obstructive pulmonary disease, unspecified Category: Medical Qualifiers: COPD type: chronic bronchitis Chronic bronchitis type: simple Qualified Code(s): J41.0 - Simple chronic bronchitis (5) Skin lesion: Code(s): L98.9 - Disorder of the skin and subcutaneous tissue, unspecified Category: Medical Plan Plan Patient was informed and verbally consented to the use of an ambient scribe for clinic note documentation during this visit. 1. Essential (primary) hypertension I10 The patient's blood pressure is well-controlled at 136/80 mmHg with current medications, including amlodipine and carvedilol. No changes to the antihypertensive regimen are necessary at this time. 2. Age-related osteoporosis without current pathological fracture M81.0 The patient is on alendronate 70 mg weekly for osteoporosis management. A follow-up with rheumatology is scheduled to assess treatment efficacy and adjust management as needed. 3. Major depressive disorder, recurrent, mild F33.0 HCC 59 The patient has mild depression with a PHQ-9 score of 5. Counseling and medication options were discussed, but no immediate intervention is required unless symptoms worsen. 4. Chronic obstructive pulmonary disease, unspecified J44.9 HCC 111 The patient is on supplemental oxygen therapy for COPD management. A follow-up with pulmonology is planned to evaluate current treatment and adjust as necessary. I discussed with the patient the management of her chronic conditions, including hypertension, osteoporosis, and COPD. We reviewed her current medications and planned follow-ups with rheumatology and pulmonology. Preventative care measures, including pneumonia and tetanus vaccinations, were also discussed. Orders: Orders Vitamin D 25-OH Total 4 Months E55.9 - Vitamin D deficiency, unspecified Pneumococcal 20 Immunization Today Z23 - Encounter for immunization Td Immunization Today Z23 - Encounter for immunization Lipid Panel 4 Months E78.5 - Hyperlipidemia, unspecified Comprehensive [place]. Panel Fast 4 Months I10 - Essential (primary) hypertension Referrals Dermatology Referral L98.9 - Disorder of the skin and subcutaneous tissue, unspecified Patient Instructions: - Continue taking all prescribed medications as directed. - Attend scheduled follow-up appointments with rheumatology and pulmonology. - Receive the pneumonia vaccination today and plan for the tetanus vaccination at the next visit. - Monitor for any changes in symptoms, especially related to leg pain and breathing.
== END 2025-01-21 08:33 | disposition home or self-care (01) ==
LOC: HO.HMCH 07:49
PROVIDERS: PCP Internal Medicine; Visit Provider Internal Medicine
DX: I10 Essential (primary) hypertension (principal); F33.0 Major depressive disorder, recurrent, mild; M81.0 Age-related osteoporosis without current pathological fracture; J41.0 Simple chronic bronchitis; L98.9 Disorder of the skin and subcutaneous tissue, unspecified; Z23 Encounter for immunization

== ENCOUNTER → 2025-01-21 07:49 | Outpatient (BNVA) | payer MEDICARE, MEDICAID, SELFPAY | PROVIDERS: PCP Internal Medicine; Visit Provider Internal Medicine | DX: I10 Essential (primary) hypertension (principal); M81.0 Age-related osteoporosis without current pathological fracture; F33.0 Major depressive disorder, recurrent, mild; J41.0 Simple chronic bronchitis; L98.9 Disorder of the skin and subcutaneous tissue, unspecified; E78.5 Hyperlipidemia, unspecified; E55.9 Vitamin D deficiency, unspecified; Z23 Encounter for immunization; Z99.81 Dependence on supplemental oxygen | CPT/HCPCS: 90471; 90472; 90677; 90714; 96127; 99212 ==

== ENCOUNTER 2025-01-29 09:48 | Outpatient (REF) | payer MEDICARE, MEDICAID, SELFPAY ==
--- NOTE | 2025-01-29 09:54 | PFT_ITS ---
Flows: FEV1: 67 % of predicted at 1.19 L FVC: 64 % of predicted at 1.48 L FEV1/FVC: 80 % Bronchodilator response: Present Volumes: Total lung capacity: 54 % of predicted at 2.43 L Residual volume: 53 % of predicted at 1.09 L Slow vital capacity: 56 % of predicted at 1.35 L Expiratory reserve volume: 3 % of predicted at 0.02 L Diffusion capacity: Mildly decreased, corrects to normal after adjustment for alveolar ventilation. Impression: Moderate restrictive ventilatory defect with positive bronchodilator response. Decreased expiratory reserve volume suggests extrathoracic restriction likely secondary to abdominal obesity. Combination of restrictive ventilatory defect with decreased diffusion capacity suggests underlying pulmonary parenchymal disease. Clinical correlation is advised. MTDD
[2025-01-29 10:39] VITALS: PULSE 84; O2SAT 95
== END 2025-01-29 09:49 | disposition home or self-care (01) ==
LOC: HO.RESP 09:48
PROVIDERS: PCP Internal Medicine; Visit Provider Hospitalist
DX: J18.9 Pneumonia, unspecified organism (principal); R60.0 Localized edema; L53.9 Erythematous condition, unspecified
CPT/HCPCS: 94010; 94727; 94729; 99212

== ENCOUNTER → 2025-01-29 09:54 | Outpatient (BNV) | payer MEDICARE, MEDICAID, SELFPAY | PROVIDERS: PCP Internal Medicine; Visit Provider Internal Medicine Pulmonary Disease | DX: J98.4 Other disorders of lung (principal) | CPT/HCPCS: 94060; 94727; 94729 ==

== ENCOUNTER 2025-01-29 14:56 | Outpatient (AMB) | payer MEDICARE, MEDICAID, SELFPAY ==
[2025-01-29 15:49] VITALS: BP 130/70; PULSE 87; O2SAT 94; BMI 31.8
--- NOTE | 2025-01-29 15:49 | A.OFFPC_ITS ---
Vital Signs 01/29/25 15:49 Height 5 ft 2 in Weight 174 lb BMI 31.8 BP 130/70 Blood Pressure Location Lt brachial Position Sitting Pulse 87 Pulse Source Pulse Oximeter Pulse Oximetry (%) 94 Oxygen Delivery Method Nasal Cannula Oxygen Flow Rate 2 Intake Visit Reasons: swelling to left arm one week after vaccine given Crew Caller Required: No Accompanied by: Self / Same As Patient Allergies diphtheria,pertussis (acellular),te (From Boostrix Tdap) Allergy (Mild, Verified 01/29/25 16:11) Redness of Skin pneumococcal vaccine Allergy (Mild, Verified 01/29/25 16:11) Redness of Skin Medication List - Last Reconciled 01/29/25 by Jason Burrell MD acetaminophen 1,000 mg PO Q6H PRN alendronate 70 mg PO QWEEK 90 days amlodipine (Norvasc) 10 mg PO DAILY carvedilol (Coreg) 6.25 mg PO BID cholecalciferol (vitamin D3) 50 mcg PO DAILY 90 days fluorometholone 0.1% 1 drp ophthalmic (eye) BID gabapentin 600 mg PO DAILY rosuvastatin 10 mg PO BEDTIME 90 days Tobacco use date assessed: 01/29/25 Fall risk assessment: No Falls in past year Last assessed Fall Risk: 01/29/25 Dental Screening Dental Screen Date: 01/29/25 Did you have a dental visit in the last 12 months?: Yes Did you have a dental problem in the last 6 months where you did not have access to dental care?: No Was dental information given to patient?: Patient has dentist HPI HPI Comments History of Present Illness Details The patient is an 79-year-old female presenting with a reaction at the injection site following recent vaccinations. She received two injections, including a tetanus booster and a pneumococcal vaccine, a few days prior to the visit. The reaction is characterized by pain and itching at the site, which has not improved with the application of A and D ointment and oral Benadryl. The patient has not experienced any systemic symptoms such as shortness of breath or swelling, indicating no signs of anaphylaxis. The family has been advised to apply a cream containing cortisone and to use hot or cold compresses to alleviate symptoms. [facility] Medical History Hiatal hernia COPD (chronic obstructive pulmonary disease) Chronic respiratory failure Pneumonia Hypertension Surgical History History of appendectomy Family History Father Cancer Mother Cancer Social History Household Members: Family Housing: House Do you presently have visiting nurse or other home services: No Alcohol intake: never Patient Tobacco Use Status: Never used Tobacco Tobacco use type: Cigarette e-Cigarette/Vaping Use: Never Used Second Hand Smoke Exposure: No Advance Directives Date on File: 04/23/24 service: No Current occupational status: disabled Cognitive needs: Yes Hearing needs: No Vision needs: Yes Questionnaire Thrive Questionnaire Date Thrive assessed: 08/13/24 I am a: Patient What is your living situation today?: I have a steady place to live Within the past 12 months, did the food you bought not last and you didn't have the money to get more?: Never true Within the past 12 months, did you worry whether your food would run out before you got money to buy more?: Never true Do you have trouble paying for medicines?: I choose not to answer this question Do you have trouble getting transportation to medical appointments?: No Do you have trouble paying your heating and electricity bill?: I choose not to answer this question Do you have trouble taking care of your child, family member or friend?: No Do you have trouble with day-to-day activities such as bathing, preparing meals, shopping, managing finances, etc.?: Yes Are you currently unemployed and looking for a job?: No Are you interested in more education?: No Please select the resources that you would like help with: None Currently or been in a relationship where the following occur: No concerns reported THRIVE Score: 0 DIONNA-7 AMB Questionnaire DIONNA-7 Date DIONNA - 7 assessed: 01/21/25 Source: Developed by Drs. Sanjay Ch, Adore Salcido, Ruy Christopher and colleagues, with an educational felicity from [employer] Review of Systems Const Details: Positives besides what was mentioned in HPI are in BOLD Constitutional: No Weight Change, No Fever, No Chills, No Night Sweats, No Fatigue, No Malaise ENT/Mouth: No Hearing Changes, No Ear Pain, No Nasal Congestion, No Sinus Pain, No Hoarseness, No sore throat, No Rhinorrhea, No Swallowing Difficulty Eyes: No Eye Pain, No Swelling, No Redness, No Foreign Body, No Discharge, No Vision Changes Cardiovascular: No Chest Pain, No SOB, No PND, No Dyspnea on Exertion, No Orthopnea, No Claudication, No Edema, No Palpitations Respiratory: No Cough, No Sputum, No Wheezing, No Smoke Exposure, No Dyspnea Gastrointestinal: No Nausea, No Vomiting, No Diarrhea, No Constipation, No Pain, No Heartburn, No Anorexia, No Dysphagia, No Hematochezia, No Melena, No Flatulence, No Jaundice Genitourinary: No Dysmenorrhea, No DUB, No Dyspareunia, No Dysuria, No Urinary Frequency, No Hematuria, No Urinary Incontinence, No Urgency, No Flank Pain, No Urinary Flow Changes, No Hesitancy Musculoskeletal: No Arthralgias, No Myalgias, No Joint Swelling, No Joint Stiffness, No Back Pain, No Neck Pain, No Injury History Skin: No Skin Lesions, No Pruritis, No Hair Changes, No Breast/Skin Changes, No Nipple Discharge Neuro: No Weakness, No Numbness, No Paresthesias, No Loss of Consciousness, No Syncope, No Dizziness, No Headache, No Coordination Changes, No Recent Falls Psych: No Anxiety/Panic, No Depression, No Insomnia, No Personality Changes, No Delusions, No Rumination, No SI/HI/AH/VH, No Social Issues, No Memory Changes, No Violence/Abuse Hx., No Eating Concerns Heme/Lymph: No Bruising, No Bleeding, No Transfusions History, No Lymphadenopathy Endocrine: No Polyuria, No Polydipsia, No Temperature Intolerance Physical exam (Primary Care) Vital Signs: Last Vital Signs Pulse 87 01/29/25 15:49 BP 130/70 01/29/25 15:49 Pulse Ox 94 01/29/25 15:49 Oxygen Delivery Method Nasal Cannula 01/29/25 15:49 Oxygen Flow Rate 2 01/29/25 15:49 BMI result Body Mass Index 31.8 Tobacco/Smoking Status: Tobacco use Status Tobacco use date assessed 01/29/25 01/29/25 15:57 Patient Tobacco Use Status Never used Tobacco 01/29/25 15:57 Tobacco use type Cigarette 01/29/25 15:57 e-Cigarette/Vaping Use Never Used 01/29/25 15:57 Thrive Assessment: Date of Thrive Assessment Date Thrive assessed 08/13/24 01/29/25 15:57 Currently or been in a relationship where the following occur: No concerns reported Const Other: Pertinent findings are in BOLD GENERAL APPEARANCE NAD, activity normal for age, well developed/ well nourished, no cyanosis, pallor, or diaphoresis. EYES lids/conjunctiva normal. EARS/NOSE/THROAT Mucous membranes moist, nares normal, lips/teeth normal uvula midline without oral pharyngeal erythema, exudate or swelling TMs normal bilaterally. No lymphangitis/lymphedema. HEAD/NECK normocephalic atraumatic, no facial trauma, neck is supple. RESPIRATORY respiratory effort normal, speaks in full sentences, no tripod position, no accessory muscle use. Lungs clear to auscultation without rhonchi, wheezes, rales CARDIAC Regular rate and rhythm, no edema. ABDOMINAL Soft, ND/NT. No evidence of fluid wave. No pulsatile masses on exam, rebound tenderness, Dominguez sign or pain over Mcburney's point. MUSCLES/EXTREMITIES No abnormal range of motion, no swelling. SKIN Warm, pink and dry. Area of erythema on her left shoulder. Non tender. NEUROLOGICAL Speech is clear and appropriate. Normal level of consciousness. Gait and coordination are normal. 5/5 strength in all extremities. PSYCH Normal mood and affect. Judgement/competence is appropriate Coding Level of Care Code Est Pt Level 2 (89409) Diagnoses Erythema L53.9 Assessment & Plan Assessment & Plan (1) Erythema: Comment: Left shoulder after Code(s): L53.9 - Erythematous condition, unspecified Category: Medical Plan: Cortisone cream. Hot, cold compress. Allergy list updated in patient chart for skin reaction to Tdap and pneumococcal vaccines. Plan During the visit, I discussed the patient's reaction to the recent vaccinations, including the pneumococcal and tetanus vaccines. I recommended applying a cortisone cream and using hot or cold compresses to manage the symptoms. Medications: New hydrocortisone 1% (Cortisone (hydrocortisone)) 1 appl topical TID PRN 453.6 grams 0RF skin irritation 2 weeks
== END 2025-01-29 16:22 | disposition home or self-care (01) ==
LOC: HO.HMCH 14:56
PROVIDERS: PCP Internal Medicine; Visit Provider Internal Medicine
DX: L53.9 Erythematous condition, unspecified (principal)

== ENCOUNTER 2025-02-04 10:21 | Outpatient (AMB) | payer MEDICARE, MEDICAID, SELFPAY ==
[2025-02-04 10:28] VITALS: BP 146/72; PULSE 70; O2SAT 95
--- NOTE | 2025-02-04 10:28 | MHC.OFFVIS ---
Vital Signs 02/04/25 10:28 Height 5 ft 2 in BMI Reason not done Patient refused/unable BP 146/72 H Blood Pressure Location Rt brachial Position Sitting Pulse 70 Pulse Source Pulse Oximeter Pulse Oximetry (%) 95 Oxygen Delivery Method Nasal Cannula Oxygen Flow Rate 2 Intake Visit Reasons: Pneumonia Accompanied by: Grand Child Allergies diphtheria,pertussis (acellular),te (From Boostrix Tdap) Allergy (Mild, Verified 02/04/25 10:31) Redness of Skin pneumococcal vaccine Allergy (Mild, Verified 02/04/25 10:31) Redness of Skin HPI Comments Details: The patient is an 79 year woman who recently moved from [place] and was in her usual state health until June when she started developing flu-like symptoms. She develop worsening shortness of breath cough and she had some malaise. She was noted to be hypoxic and she was brought to the [facility] ED where she was tested positive for the flu A. She also had a chest x-ray abnormal with evidence of bronchopneumonia. She had a CT scan of the chest which was personally by me demonstrating significant airspace disease bilaterally bronchitis and pneumonia consistent with likely postviral bacterial pneumonia and if not influenza pneumonia. She was given antibiotics. She did require oxygen. And she was given respiratory inhalers. He was able to be discharged home on oxygen. Currently she is on 2 L continuous. During the office visit we did wean her off the oxygen and she actually saturating around 93% on room air sitting. Once she was moving around the patient did desaturate down to 88% and we did place her on 2 L pulse allowing her pulse ox to be around 94%. Therefore she does qualify for POC. The POC will provide her better portability outside of the home. Also on the blood work she did have it venous blood gas demonstrating hypercarbia in this case chronic hypercarbic respiratory failure. Will go ahead and request a repeat blood gas at this time. She does have daytime drowsiness. Her [place] score is elevated 04/08. She may have some untreated sleep apnea resulting in the hypercarbia. 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 But otherwise she has been a lifelong nonsmoker. Also to note her CT scan I personally reviewed she does have a large hiatal hernia. At this point she will continue with the reflux diet. Will consider a barium swallow once we stabilize her overall respiratory condition. As far as inhalers she has a rescue inhaler she will use that for now. No additional inhalers required. 02/04/2025 the patient is here for a pulmonary follow-up visit. Overall the patient has been doing better. Overall she is using the oxygen with good effect. We did talk about a POC during the last visit but for some reason she has not gotten 1 as of yet. Will go ahead and request a POC at this time from [facility]. This will provide better portability outside of the home. The patient also had a overnight oximetry demonstrating significant hypoxia. She needs to continue using the oxygen at nighttime. 2 L at night. Blood work was also done. Her CO2 was actually pretty decent 50 mmHg demonstrating just a minimal amount of hypercarbia which is reassuring. She is resting well her [place] score seems to be better it over 24. The patient also did undergo pulmonary function studies which I personally reviewed demonstrating a moderate to severe restriction to some degree part due to her significant large hiatal hernia. We did talk about deep breathing exercises at did give her the information about the online pulmonary rehabilitation she can work on that. The patient also had a chest x-ray which I personally reviewed. No airspace disease that I could appreciate but she has a very large hiatal hernia with an air-fluid level. Therefore we talked about the reflux diet making sure that she slept elevated to minimize micro aspirations into the lungs that can result in recurrent infections. The family would like to pursue further testing for the large hiatal hernia. Will go ahead and request a barium swallow and the patient may benefit from a GI evaluation specially to assess for Campos's. She does have some difficulty swallowing. I wonder if there could be a stricture due to the significant reflux disease. [facility] Medical History Hiatal hernia COPD (chronic obstructive pulmonary disease) Chronic respiratory failure Pneumonia Hypertension Surgical History History of appendectomy Family History Father Cancer Mother Cancer Social History Household Members: Family Housing: House Do you presently have visiting nurse or other home services: No Alcohol intake: never Patient Tobacco Use Status: Never used Tobacco Tobacco use type: Cigarette e-Cigarette/Vaping Use: Never Used Second Hand Smoke Exposure: No Advance Directives Date on File: 04/23/24 service: No Current occupational status: disabled Cognitive needs: Yes Hearing needs: No Vision needs: Yes Review of Systems Const Reports daytime sleepiness and Reports difficulty sleeping ENT Reports nasal congestion Card Denies chest pain and Reports dyspnea on exertion Resp Reports cough and Reports dyspnea on exertion GI Reports as per HPI, Reports dyspepsia and Reports heartburn Musc Reports abnormal gait and Reports myalgias Skin/Breast Denies rash Neuro Reports abnormal gait Luis/Lymph Reports no additional complaints Physical Exam Vital Signs: Last Vital Signs Pulse 70 02/04/25 10:28 BP 146/72 H 02/04/25 10:28 Pulse Ox 95 02/04/25 10:28 Oxygen Delivery Method Nasal Cannula 02/04/25 10:28 Oxygen Flow Rate 2 02/04/25 10:28 Const General: comfortable HEENT Head: Yes normocephalic Neck Neck: Yes supple Chest Chest palpation & inspection: normal inspection of the chest Resp Effort & Inspection: normal respiratory effort Auscultation: diminished lung sounds Cardio Heart sounds: S1 normal heart sound present and S2 normal heart sound present GI Palpation (GI): Soft to palpation Skin General skin exam: no rashes or lesions noted Extrem General: Yes no clubbing, cyanosis or edema Assessment & Plan Assessment & Plan (1) Chronic respiratory failure: Code(s): J96.10 - Chronic respiratory failure, unspecified whether with hypoxia or hypercapnia Category: Medical Qualifiers: Respiratory failure complication: hypoxia Qualified Code(s): J96.11 - Chronic respiratory failure with hypoxia (2) COPD (chronic obstructive pulmonary disease): Code(s): J44.9 - Chronic obstructive pulmonary disease, unspecified Category: Medical Qualifiers: COPD type: chronic bronchitis Chronic bronchitis type: simple Qualified Code(s): J41.0 - Simple chronic bronchitis (3) Hiatal hernia: Code(s): K44.9 - Diaphragmatic hernia without obstruction or gangrene Category: Medical Plan Oxygen revision: POC at 2L/pulse with activity for better portability, continue 2L/min while sleeping Consider in lab PSG SANIYA as needed GI referral Barium swallow F/U 4-6 months Orders: Orders [place] barium swallow Today K21.9 - Gastro-esophageal reflux disease without esophagitis Referrals Gastroenterology Referral K44.9 - Diaphragmatic hernia without obstruction or gangrene Coding Level of Care Code Est Pt Level 4 (28969) Complex EM visit Add On G2211 Diagnoses Chronic respiratory failure with hypoxia J96.11 Respiratory failure complication: hypoxia Simple chronic bronchitis J41.0 COPD type: chronic bronchitis Chronic bronchitis type: simple Hiatal hernia K44.9 Time Spent (min) 20
== END 2025-02-04 11:02 | disposition home or self-care (01) ==
LOC: HO.HPS 10:23
PROVIDERS: PCP Internal Medicine; Visit Provider Hospitalist
DX: J96.11 Chronic respiratory failure with hypoxia (principal); J41.0 Simple chronic bronchitis; K44.9 Diaphragmatic hernia without obstruction or gangrene
CPT/HCPCS: 99214; G2211

== ENCOUNTER → 2025-02-04 10:21 | Outpatient (BNVA) | payer MEDICARE, MEDICAID, SELFPAY | PROVIDERS: PCP Internal Medicine; Visit Provider Hospitalist | DX: J96.11 Chronic respiratory failure with hypoxia (principal); J41.0 Simple chronic bronchitis; K44.9 Diaphragmatic hernia without obstruction or gangrene | CPT/HCPCS: 99212 ==

== ENCOUNTER 2025-02-26 12:22 | Outpatient (AMB) | payer MEDICARE, MEDICAID, SELFPAY ==
--- NOTE | 2025-02-26 12:32 | A.OFFVIS_ITS ---
Vital Signs 02/26/25 12:45 Height 5 ft 2 in Weight 179 lb 10.828 oz BMI 32.9 BP 140/98 H Blood Pressure Location Lt brachial Position Sitting Pulse 79 Pulse Source Pulse Oximeter Pulse Oximetry (%) 98 Oxygen Delivery Method Room Air Intake Visit Reasons: osteoporosis Intake Note: Patient presents for Osteoporosis follow up. Allergies diphtheria,pertussis (acellular),te (From Boostrix Tdap) Allergy (Mild, Verified 02/26/25 12:44) Redness of Skin pneumococcal vaccine Allergy (Mild, Verified 02/26/25 12:44) Redness of Skin HPI Comments Details: Patient is a 79-year-old female with GERD secondary to hiatal hernia, hypertension complicated by coronary artery disease, hyperlipidemia, polyarticular osteoarthritis and osteoporosis here today to establish care Interval History: Patient last seen 10/16/24 with me - New patient visit to establish care - Wanted to start Prolia 60mg but this was denied by insurance - Started alendronate - Given steroid injection in right knee Today - On alendronate 70mg weekly - Still on oxygen, this improved: only on O2 at nights and when she goes out - Tolerating the alendronate - Steroid injection helped for a few weeks - Requesting bilateral knee injections today Rheumatologic History: Osteoporosis 10/2024 Alendronate 10/2024 - Initial History: Patient is a 79-year-old female with GERD secondary to hiatal hernia, hypertension complicated by coronary artery disease, hyperlipidemia, polyarticular osteoarthritis and osteoporosis here today to establish care Currently on oxygen 2/2 recent hospitalization for PNA. Needs to follow up with pulmonary. Patient had screening bone density 09/2024 which showed osteoporosis at the L spine, Left hip and Left femoral neck Risk Factor Assessment: ? Age: 79 ? Race: ? Menarche: 11 - 53 ? Family history including hip fracture: No ? Cigarette smoking: never ? Excessive alcohol: never ? Excessive caffeine: none High-risk medication assessment: No history of taking ? Glucocorticoids ? Excess thyroid hormone ? Anticonvulsants ? Heparin ? Peerless ? SSRIs ? Aromatase Also complaining of right knee pain. History of known knee OA. Received gel injections in the past without any improvement. Was supposed to get a knee replacement however at the time of knee replacement had hospitalization for sepsis and so this was permanently deferred. Current Rheumatology Medication(s): Alendronate 70mg PO weekly [facility] Medical History Hiatal hernia COPD (chronic obstructive pulmonary disease) Chronic respiratory failure Pneumonia Hypertension Surgical History History of appendectomy Family History Father Cancer Mother Cancer Social History Household Members: Family Housing: House Do you presently have visiting nurse or other home services: No Alcohol intake: never Patient Tobacco Use Status: Never used Tobacco Tobacco use type: Cigarette e-Cigarette/Vaping Use: Never Used Second Hand Smoke Exposure: No Advance Directives Date on File: 04/23/24 service: No Current occupational status: disabled Cognitive needs: Yes Hearing needs: No Vision needs: Yes Review of Systems Const All systems reviewed & are unremarkable except as noted in HPI and below Physical Exam Exam Exam: Vital signs reviewed Physical Examination CONSTITUITIONAL Patient alert and cooperative. Well appearing and in no apparent painful distress MSK Hands * Right Hand: Able to make a fist. No swelling or tenderness to palpation of the MCPs, PIPs or DIPs. * Left Hand: Able to make a fist. No swelling or tenderness to palpation of the MCPs, PIPs or DIPs. * Herbedens and Bouchards nodes noted bilaterally Wrists * Right Wrist: Full ROM to flexion and extension. No swelling or TTP * Left Wrist: Full ROM to flexion and extension. No swelling or TTP Elbows * Right Elbow: Full ROM. No swelling or TTP. No TTP of the medial epicondyle. No TTP of the lateral epicondyle * Left Elbow: Full ROM. No swelling or TTP. No TTP of the medial epicondyle. No TTP of the lateral epicondyle Shoulders * Right shoulder: Full ROM. No swelling noted. No TTP of the AC joint. No TTP of the subacromial bursa. No TTP of the posterior shoulder * Left shoulder: Full ROM. No swelling noted. No TTP of the AC joint. No TTP of the subacromial bursa. No TTP of the posterior shoulder Hips * Right hip: Good ROM. No pain elicited with hip flexion/internal rotation/external rotation * Left hip: Good ROM. No pain elicited with hip flexion/internal rotation/external rotation Hip bursa: No tenderness to palpation bilaterally Knees * Right knee: Full ROM. No swelling noted. No TTP of the knee joint line. No TTP of pes anserine bursa * Left knee: Full ROM. No swelling noted. No TTP of the knee joint line. No TTP of pes anserine bursa. Ankles * Right ankle: Good ankle dorsiflexion and plantar flexion. No swelling. No TTP of the ankle joint * Left ankle: Good ankle dorsiflexion and plantar flexion. No swelling. No TTP of the ankle joint Feet * Right foot: Negative squeeze test * Left foot: Negative squeeze test Tender points? * No tenderness to palpation of the bilateral trapezius, supraspinatus, anterior costochondral junctions, bilateral suboccipital muscle insertions SKIN No rashes Vital Signs: Last Vital Signs Pulse 79 02/26/25 12:45 BP 140/98 H 02/26/25 12:45 Pulse Ox 98 02/26/25 12:45 Oxygen Delivery Method Room Air 02/26/25 12:45 BMI result Body Mass Index 32.9 Office Procedures AMB Joint Injection/Aspiration Joint Injection/Aspiration Details: Procedure was explained to the patient and informed consent was obtained. ? Risks associated with the procedure were discussed with the patient including but not limited to bleeding, infection, drug reactions and reactions to the topical anesthetic. Patient made aware of signs to look out for infectious complications. The area of interest was identified and confirmed with patient. ?This was subsequently cleaned with chlorhexidine x 2. ? The area was then anesthetized using ethyl chloride spray. 40 mg Kenalog with 1 cc 1% lidocaine was injected without issue. ?Minimal to no bleeding. ?Patient tolerated procedure. Primary Site: right knee Prep: site was prepped using aseptic technique Procedure: The patient tolerated the procedure well Coding 59617 - Large joint Procedure code (CPT) selection complete AMB Joint Injection/Aspiration Joint Injection/Aspiration Details: Procedure was explained to the patient and informed consent was obtained. ? Risks associated with the procedure were discussed with the patient including but not limited to bleeding, infection, drug reactions and reactions to the topical anesthetic. Patient made aware of signs to look out for infectious complications. The area of interest was identified and confirmed with patient. ?This was subsequently cleaned with chlorhexidine x 2. ? The area was then anesthetized using ethyl chloride spray. 40 mg Kenalog with 1 cc 1% lidocaine was injected without issue. ?Minimal to no bleeding. ?Patient tolerated procedure. Primary Site: left knee Prep: site was prepped using aseptic technique and ethochloride spray was applied Injected: 40 mg of, Kenalog, with 1 mL of and 1% plain lidocaine Procedure: The patient tolerated the procedure well Coding 65008 - Large joint Procedure code (CPT) selection complete Office Meds lidocaine (PF) 10 mg/mL (1 %) injection solution Performing Provider: Polly Harris MD Performing Location: [facility] Administered by: Levi Varghese RN on 02/26/25 13:08 Dose Route Admin Location Dispensed Lot Number Expiration Date [facility] [employer] 1 mL Infiltration right knee 2 mL [id number] 10/13/26 89658-210-08 FR [employer] 1 mL Infiltration 2 2 mL [id number] 10/13/26 18624-043-48 [employer]ES[employer] Total Dispensed Waste 4 mL 50 % Kenalog 40 mg/mL suspension for injection Performing Provider: Polly Harris MD Performing Location: [facility] Administered by: Levi Varghese RN on 02/26/25 13:08 Dose Route Admin Location Dispensed Lot Number Expiration Date [facility] [employer] 40 mg intra-articular right knee 1 mL [id number] 11/12/26 [address]- 1 [employer] 40 mg intra-articular 1 mL [id number] 11/12/26 [address]-2 A [employer] Total Dispensed Waste 2 mL 0 % lidocaine (PF) 10 mg/mL (1 %) injection solution Performing Provider: Polly Harris MD Performing Location: [facility] Administered by: Polly Harris MD on 02/26/25 14:32 Dose Route Admin Location Dispensed Lot Number Expiration Date [facility] [employer] 1 mL Infiltration left knee 1 mL Total Dispensed Waste 1 mL 0 % Kenalog 40 mg/mL suspension for injection Performing Provider: Polly Harris MD Performing Location: [facility] Administered by: Polly Harris MD on 02/26/25 14:32 Dose Route Admin Location Dispensed Lot Number Expiration Date [facility] [employer] 40 mg intra-articular left knee 1 mL Total Dispensed Waste 1 mL 0 % Results Reviewed Results Reviewed: Laboratory Tests 04/05/25 06/30/25 08:25 12:08 ESR 38 H Sodium 140 Potassium 4.3 Chloride 103 Carbon Dioxide 28 BUN 27 H Creatinine 0.82 AST 34 H ALT 20 25-OH Vitamin D Total 29.7 L DEXA 09/2024 FINDINGS: The bone mineral density of the lumbar spine is 0.841 with a T-score of -2.8, and a Z-score of -1.3. This is indicative of osteoporosis. The bone mineral density of the left total hip is 0.706 with a T-score of -2.4, and a Z-score of -0.6. This is indicative of osteopenia. The bone mineral density of the left femoral neck is 0.673 with a T-score of -2.6, and a Z-score of -0.6. This is indicative of osteoporosis. FRACTURE RISK: The FRAX index suggests a risk of major osteoporotic fracture of 18.0%, and of hip fracture 5.9%. Assessment & Plan Assessment & Plan (1) Osteoporosis: Comment: DEXA 09/2024: AP Spine -2.8, Left femur neck -2.6, Left femur total -2.4 Alendronate 09/2024 Code(s): M81.0 - Age-related osteoporosis without current pathological fracture Category: Medical Qualifiers: Osteoporosis type: age-related Presence of current pathological fracture: without current pathological fracture Qualified Code(s): M81.0 - Age- related osteoporosis without current pathological fracture Plan: #Osteoporosis Patient is an 79-year-old female with osteoporosis here today for follow up. Tolerating alendronate Plan - Alendronate 70mg weekly - Vit D supplementation - RTC 4 months - Labs before visit: CMP and Vit D (2) Polyarticular osteoarthritis: Code(s): M15.9 - Polyosteoarthritis, unspecified Plan: #Polyarticular OA Patient with polyarticular osteoarthritis Status post bilateral knee injection. Plan - RTC 4 months (3) Encounter for ongoing osteoporosis therapy, bisphosphonates: Code(s): M81.0 - Age-related osteoporosis without current pathological fracture; Z79.83 - MCC (current) use of bisphosphonates Plan: #Long-term Use of Bisphosphonates Risks and benefits of bisphosphonates in the management of osteoporosis Benefits include improved bone density, decreased fracture risk Risks include atypical femoral fractures, GI upset, esophageal strictures Contraindicated in patients with a creatinine clearance < 30 to 35 ml/min Keep vitamin-D at least 35 ng/mL Plan I spent 30 minutes reviewing the record and labs, taking a history, examining the patient, discussing the treatment plan, ordering diagnostic work up and documenting in the medical record Orders: Orders AMB Joint Injection/Aspiration Today M17.0 - Bilateral primary osteoarthritis of knee AMB Joint Injection/Aspiration Today M17.12 - Unilateral primary osteoarthritis, left knee Coding Level of Care Code Est Pt Level 4 (83192) Complex EM visit Add On G2211 Diagnoses Age-related osteoporosis without current pathological fracture M81.0 Osteoporosis type: age-related Presence of current pathological fracture: without current pathological fracture Polyarticular osteoarthritis M15.9 Encounter for ongoing osteoporosis therapy, bisphosphonates M81.0; Z79.83 CPT Codes Coding - 51714 Large joint: 89945 - Large joint ([id number]) Coding - 06538 Large joint: 12646 - Large joint ([id number])
[2025-02-26 12:45] VITALS: BP 140/98; PULSE 79; O2SAT 98; BMI 32.9
== END 2025-02-26 13:22 | disposition home or self-care (01) ==
LOC: HO.RHES 12:23
PROVIDERS: PCP Internal Medicine; Visit Provider Student in an Organized Health Care Education/Training Program
DX: M81.0 Age-related osteoporosis without current pathological fracture (principal); M17.0 Bilateral primary osteoarthritis of knee; Z79.83 Long term (current) use of bisphosphonates
CPT/HCPCS: 20610; 99213

== ENCOUNTER 2025-02-26 12:22 | Outpatient (REF) | payer MEDICARE, MEDICAID, SELFPAY ==
[2025-02-26 18:42] LABS: Alanine Aminotransferase 17 U/L (0-31); Albumin Level 4.2 g/dL (3.5-5.0); Alkaline Phosphatase 66 U/L (39-117); Anion Gap 13 (12-20); Aspartate Amino Transferase 27 U/L (5-31); Blood Urea Nitrogen 24 mg/dL (9-16); Calcium 9.8 mg/dL (8.4-10.2); Carbon Dioxide 30 mmol/L (22-29); Chloride 104 mmol/L (96-108); Estimated Glomerular Filt Rate > 60; Potassium 4.5 mmol/L (3.3-5.1); Sodium 142 mmol/L (135-145); Total Protein 8.3 g/dL (6.5-8.0)
== END 2025-02-26 12:23 | disposition home or self-care (01) ==
LOC: HO.HKASLDS 12:22
PROVIDERS: PCP Internal Medicine; Visit Provider Student in an Organized Health Care Education/Training Program
DX: M81.0 Age-related osteoporosis without current pathological fracture (principal); E55.9 Vitamin D deficiency, unspecified; Z79.83 Long term (current) use of bisphosphonates; M17.0 Bilateral primary osteoarthritis of knee
CPT/HCPCS: 20610; 36415; 80053; 82306; 99212; J2003; J3301